=== PATIENT | female | born 1990 | race Caucasian/White ===

== ENCOUNTER 2016-08-05 18:55 | Emergency (ER) | payer BC, MEDICAID ==
[~2016-08-05] VITALS: Ht 137.2 cm; Wt 42.8 kg
[~2016-08-05 18:55] MED LIST: CHOL500050 GT; ESOM40CA GT; GABA-185 GT; HYDR-4009 GT; IMIP50TA GT; LACO50TA2 GT; LACT1CAP32 GT; LEVA1.25 AEROSOL; LEVE500T18 GT; LEVE500T26 GT; LORA2TAB81 GT; MOME17SP7 NS; PHEN30TA40 GT; POTA10CA29 GT; PRED5SOL GT; SIME80TA GT; SODI30SP3 NAS; [UNRECOGNIZED DRUG - CODE] GT; [UNRECOGNIZED DRUG - CODE] GT; [UNRECOGNIZED DRUG - CODE] IT
--- OUTSIDE RECORDS SUMMARY | 2016-08-05 18:59 | XMS REPORT | Continuity of Care Document ---
Author Author [facility] Organization [facility] Address Unknown Phone Unavailable Care Team Providers Care Algebraist Name Role Phone ТАТЬЯНА LOYA MD Primary Care Physician [phone] Insurance Providers Payer Name Policy Number Subscriber Name Relationship [facility] [id number] Ambrocio Stevenson 19 Child [facility] Community Plan [id number] Tia Stevenson 18 Self Advance Directives Directive Response Recorded Date/Time Advanced Directives Type None 12/31/13 1:08pm Problems Medical Problems Problem Onset Date Status Aspiration pneumonia due to inhalation of vomitus Unknown Active Aspiration pneumonia due to inhalation of vomitus Unknown Active Dislodged gastrostomy tube Unknown Active Dislodged gastrostomy tube Unknown Active Upper respiratory infection Unknown Active Medications Medication Dose Route Sig Days/Qty Instructions Order Date Discontinued Date Status Oxcarbazepine 300 Mg GT TWICE A DAY 12/05/09 Active Imipramine Hcl 50 Mg GT DAILY 12/05/09 Active Metoclopramide Hcl 10 Mg PO TWICE A DAY 03/01/08 03/02/08 Discontinued Levetiracetam 250 Mg PO TWICE A DAY 03/02/08 12/05/09 Discontinued Polyethylene Glycol 3350 1 Tsp GT DAILY 12/05/09 Active Zolpidem Tartrate 5 Mg PO NEEDED 03/02/08 12/05/09 Discontinued Mometasone Furoate 17 Gm NS DAILY 12/05/09 Active Phenobarbital 37.5 Mg GT DAILY 12/05/09 Active Potassium Chloride 20 Meq GT DAILY 12/05/09 Active Gabapentin 100 Mg PO TWICE A DAY 03/02/08 12/05/09 Discontinued Gabapentin 100 Mg GT THREE TIMES A DAY 12/05/09 Active Levetiracetam 500 Mg GT TWICE A DAY 12/05/09 Active Lorazepam 2 Mg GT NEEDED 12/05/09 Active Baclofen 500 Mcg IT DAILY 12/05/09 Active Lactobacillus Rhamnosus 1 Cap PO 10/07/13 Active [Gas X] 10/07/13 Active Levalbuterol Hcl 1.25 Mg IH EVERY 4-6 HOURS PRN WHEEZING 1 Qty Active Lacosamide 1 Tab PO TWICE A DAY 12/31/13 Active Mometasone Furoate 1 [place] EA NOSTRIL DAILY PRN PRN ORDERS 12/31/13 Active Cholecalciferol (Vitamin D3) 1 Cap PO 1 WEEK 12/31/13 Active Hydrocodone/Acetaminophen 1 Tab PO Every 6 Hours PRN PAIN 12/31/13 Active Sodium Chloride Unknown Dose 12/31/13 Active Esomeprazole Magnesium 1 Cap PO TWICE A DAY 12/31/13 Active Social History Social History Problem Response Recorded Date/Time Smoking Status Never smoker 12/31/2013 1:35pm Hx Alcohol Use No 12/31/2013 1:35pm Hospital Discharge Instructions No hospital discharge instructions. Plan of Care No plan of care. Functional Status Query Response Date Recorded Physical Hygiene Total Care December 31, 2013 1:35pm Disabilities Contracture December 31, 2013 1:35pm Devices Used Wheelchair December 31, 2013 1:35pm Dressing Total Care December 31, 2013 1:35pm Ambulation Total Care December 31, 2013 1:35pm Diet Total Care December 31, 2013 1:35pm Mental Status Confused December 31, 2013 3:06pm Disabilities Contracture December 31, 2013 1:35pm Devices Used Wheelchair December 31, 2013 1:35pm Physical Hygiene Total Care December 31, 2013 1:35pm Dressing Total Care December 31, 2013 1:35pm Ambulation Total Care December 31, 2013 1:35pm Diet Total Care December 31, 2013 1:35pm Allergies, Adverse Reactions, Alerts Allergen Type Severity Reaction Status Last Updated Phenytoin Allergy Intermediate RASH Active 11/03/13 Midazolam Allergy Intermediate HYPOTENSION Active 11/03/13 Immunizations Name Given Type Hx Influenza Vaccination 2008 Historical Hx Pneumococcal Vaccination Yes Historical Hx Influenza Vaccination 2008 Historical Vital Signs Acute Vital Signs Vital Response Date/Time Temperature (Fahrenheit) 98.6 deg F (96.8 - 99.1) Temperature (Calculated Celsius) 37.54569 degrees C (36.0 - 37.3) Pulse Rate (adult) 93 bpm (60 - 100) Respiratory Rate 18 breaths/min (10 - 20) O2 Sat by Pulse Oximetry 100 % (90 - 100) Blood Pressure 172/115 mm Hg Height 4 ft 6 in Weight 90 lb Body Mass Index 21.0 kg/m^2 Results Test Source Date Result Interp. Ref. Range Comments Respiratory Virus Antigen Screen December 31, 2013 1:49pm Negative - Influenza Type B Antigen December 31, 2013 1:49pm Negative - Negative for Flu B protein antigen. Assay sensitivity is90%. Influenza Type A Antigen December 31, 2013 1:49pm Negative - Negative for Flu A protein antigen. Assay sensitivity is90%. Alanine Aminotransferase (ALT/SGPT) March 08, 2013 2:43pm 20 U/L N 9- 52 Albumin March 08, 2013 2:43pm 3.7 G/DL N 3.5-5.0 Albumin/Globulin Ratio March 08, 2013 2:43pm 1.2 RATIO N 1.1-2.2 Alkaline Phosphatase March 08, 2013 2:43pm 89 U/L N 38-126 Amylase Level May 26, 2010 8:30am 51 U/L N 30-110 Anion Gap March 08, 2013 2:43pm 12 MEQ/L N 5-15 Anti-Endomysial Antibody May 26, 2010 8:30am Ref lab rpt scanned - --- 05/31/10 1008 ---ENDOM previously reported as: SEND OUT Aspartate Amino Transf (AST/SGOT) March 08, 2013 2:43pm 11 U/L L 14- 36 BUN/Creatinine Ratio March 08, 2013 2:43pm 15 RATIO N 6-26 Basophils # (Auto) April 07, 2011 8:36am 0.0 T/MM3 N 0-0.2 Basophils (%) (Auto) April 07, 2011 8:36am 0.9 % N 0-2 Blood Urea Nitrogen March 08, 2013 2:43pm 3.0 MG/DL L 7-17 C-Reactive Protein May 26, 2010 8:30am 5.2 MG/L N 0-9 Calcium Level March 08, 2013 2:43pm 8.3 MG/DL L 8.4-10.2 Calculated Osmolality March 08, 2013 2:43pm 252 MOSM/KG L 261-280 Carbon Dioxide Level March 08, 2013 2:43pm 26 MEQ/L N 22-30 Chloride Level March 08, 2013 2:43pm 95 MEQ/L L 98-107 Conjugated Bilirubin December 05, 2009 2:25am 0.00 MG/DL N 0.00-0.30 Creatinine March 08, 2013 2:43pm 0.2 MG/DL L 0.7-1.2 Eosinophils # (Auto) April 07, 2011 8:36am 0.1 T/MM3 N 0-0.5 Eosinophils (%) (Auto) April 07, 2011 8:36am 2.1 % N 0-4 Erythrocyte Sedimentation Rate May 26, 2010 8:30am 41 MM/HR H 0-20 Free Thyroxine April 07, 2011 8:36am 0.72 NG/DL L 0.78-2.19 Globulin March 08, 2013 2:43pm 3.1 G/DL N 2.4-3.6 Glucose Level March 08, 2013 2:43pm 89 MG/DL N 65-110 Helicobacter pylori Antibodies May 26, 2010 8:30am Ref lab rpt scanned - --- 05/29/10 1048 ---HPYLGAM previously reported as: SENT OUT Hematocrit April 07, 2011 8:36am 43.2 % N 36-46 Hemoglobin April 07, 2011 8:36am 14.4 GM/DL N 12-16 Immunoglobulin A May 26, 2010 8:30am 209.34 MG/DL N 70-400 Lipase May 26, 2010 8:30am 77 U/L N 23-300 Lymphocytes # (Auto) April 07, 2011 8:36am 1.4 T/MM3 N 1-4.8 Lymphocytes (%) (Auto) April 07, 2011 8:36am 40.3 % N 23-45 Mean Corpuscular Hemoglobin April 07, 2011 8:36am 31.1 UUG N 26-34 Mean Corpuscular Hemoglobin Concent April 07, 2011 8:36am 33.3 GM/DL N 31-37 Mean Corpuscular Volume April 07, 2011 8:36am 93.3 UM3 N 80-100 Mean Platelet Volume April 07, 2011 8:36am 9.9 UM3 N 9.4-12.4 Monocytes # (Auto) April 07, 2011 8:36am 0.3 T/MM3 N 0-0.8 Monocytes (%) (Auto) April 07, 2011 8:36am 7.6 % N 0-9.0 Neutrophils # (Auto) April 07, 2011 8:36am 1.7 T/MM3 L 1.8-7.7 Neutrophils (%) (Auto) April 07, 2011 8:36am 49.1 % N 33-66 Oxcarbazepine Level March 08, 2013 2:43pm 32 mcg/mL - Test Performed by:[facility] [address] [place] [address] Catalyst Concentration Operator: Ishaan Beauchamp III, M.D. Oxcarbazepine, S performed at [facility], [address] [place] [address] Candy Butcher Nito Wilson MD Phenobarbital Level March 08, 2013 2:43pm 16 ug/mL - Phenobarbital performed at [facility], [address] [place] [address] [id number] Director Nano Wilson MD Platelet Count April 07, 2011 8:36am 211 T/MM3 N 130-400 Potassium Level March 08, 2013 2:43pm 4.2 MEQ/L N 3.6-5 RDW Standard Deviation April 07, 2011 8:36am 44.4 FL N 36.9-50.2 Red Blood Count April 07, 2011 8:36am 4.63 M/MM3 N 4.00-5.20 Sodium Level March 08, 2013 2:43pm 133 MEQ/L L 134-144 Thyroid Stimulating Hormone (TSH) April 07, 2011 8:36am 0.58 MIU/L N 0.47-4.68 Thyroxine (T4) May 26, 2010 8:30am 4.2 UG/DL L 5.5-11 Tissue Transglutaminase IgA Ab May 26, 2010 8:30am Ref lab rpt scanned - --- 05/29/10 1048 ---TISSTRIGA previously reported as: SEND OUT Total Bilirubin March 08, 2013 2:43pm 0.10 MG/DL L 0.20-1.30 Total Protein March 08, 2013 2:43pm 6.8 G/DL N 6.3-8.2 Unconjugated Bilirubin December 05, 2009 2:25am 0.18 MG/DL N 0.00-1.10 Urine Amorphous Phosphates December 05, 2009 3:30am Moderate - Has specimen been collected/obtained? Y Urine Bacteria July 24, 2013 10:00am None seen - Urine Bilirubin July 24, 2013 10:00am Negative - Urine Blood July 24, 2013 10:00am Negative - Urine Collection Type July 24, 2013 10:00am Straight cath - Urine Color July 24, 2013 10:00am Yellow - Urine Culture Indicated July 24, 2013 10:00am Cult not indicated - Urine Glucose (UA) July 24, 2013 10:00am Negative - Urine Ketones July 24, 2013 10:00am Negative - Urine Leukocyte Esterase July 24, 2013 10:00am Negative - Urine Mucus December 05, 2009 3:30am Present - Has specimen been collected/obtained? Y Urine Nitrite July 24, 2013 10:00am Negative - Urine Protein July 24, 2013 10:00am Negative - Urine RBC July 24, 2013 10:00am 3-5 /HPF H - Urine Specific [place] July 24, 2013 10:00am 1.010 L - Urine Squamous Epithelial Cells July 24, 2013 10:00am 0-5 - Urine Turbidity July 24, 2013 10:00am Clear - Urine Urobilinogen July 24, 2013 10:00am 0.2 EU/DL - Urine WBC July 24, 2013 10:00am 0-1 /HPF - Urine pH July 24, 2013 10:00am 8.0 - White Blood Count April 07, 2011 8:36am 3.4 T/MM3 L 4.5-11.0 Oxcarbazepine Metabolite August 23, 2009 9:45am Send out - Lab Scanned Report July 24, 2013 11:47am LAB TEST FORM REQUEST [id number] - Glomerular Filtration Rate Calc March 08, 2013 2:43pm 444 - Immature Granulocyte # (Auto) April 07, 2011 8:36am 0.00 T/MM3 N 0.00- 0.03 Immature Granulocyte % (Auto) April 07, 2011 8:36am 0.0 % N 0.0-0.5 Blood Culture Blood December 20, 2010 10:40am NO GROWTH AFTER 5 DAYS Name: TIA STEVENSON Unit #: [id number] : 1990 Sex: F Loc / Svc: JESSIKA DOS: 11/14/13 Signed Report #: [id number] DIAGNOSTIC IMAGING REPORT TYPE OF EXAM: CHEST, PA & LATERAL Dictated By: BOOM HOLT MD INDICATION: ITS.REASON: 786.2 COUGH COMPARISON: 09/07/13 CHEST, PA LATERAL: Scoliosis and thoracolumbar surgery. Large amount of gas in the colon. Normal heart size. No evidence of acute lung infiltrate. Minimal change since the prior CXR. IMPRESSION: No evidence of acute disease. . Procedures Procedure Status Date Provider(s) CHANGE GASTROSTOMY TUBE completed 11/03/13 VY GILLIAM MD Encounters Encounter Location Date/Time Registered Emergency Room [facility] 12/31/13 12:36pm Registered Clinic [facility] 11/14/13 12:41pm Departed Emergency Room [facility] 11/03/13 4:55pm Departed Emergency Room [facility] 10/07/13 4:30am Recent Diagnosis
--- OUTSIDE RECORDS SUMMARY | 2016-08-05 18:59 | XMS REPORT | Continuity of Care Document ---
Author Author [facility] Organization [facility] Address Unknown Phone Unavailable Care Team Providers Care Marketing Manager Health Communications Name Role Phone ТАТЬЯНА LOYA MD Primary Care Physician [phone] Insurance Providers Payer Name Policy Number Subscriber Name Relationship [facility] [id number] Ambrocio Stevenson 19 Child [facility] Community Plan [id number] Tia Stevenson 18 Self Problems Medical Problems Problem Onset Date Status Aspiration pneumonia due to inhalation of vomitus Unknown Active Aspiration pneumonia due to inhalation of vomitus Unknown Active Dislodged gastrostomy tube Unknown Active Dislodged gastrostomy tube Unknown Active Medications Medication Dose Route Sig Days/Qty Instructions Order Date Discontinued Date Status Oxcarbazepine 300 Mg GT TWICE A DAY 12/05/09 Active Imipramine Hcl 50 Mg GT DAILY 12/05/09 Active Metoclopramide Hcl 10 Mg PO TWICE A DAY 03/01/08 03/02/08 Discontinued Levetiracetam 250 Mg PO TWICE A DAY 03/02/08 12/05/09 Discontinued Polyethylene Glycol 3350 1 Tsp GT DAILY 12/05/09 Active Famotidine 20 Mg GT TWICE A DAY 12/05/09 Active Zolpidem Tartrate 5 Mg PO [...] Baclofen 500 Mcg IT DAILY 12/05/09 Active Lacosamide 50 Mg PO 10/07/13 Active Lactobacillus Rhamnosus 1 Cap PO 10/07/13 Active [Gas X] 10/07/13 Active Levalbuterol Hcl 1.25 Mg IH EVERY 4-6 HOURS PRN WHEEZING 1 Qty Active Social History Social History Problem Response Recorded Date/Time Smoking Status Never smoker 11/03/2013 5:15pm Hx Alcohol Use No 11/03/2013 5:15pm Hospital Discharge Instructions No hospital discharge instructions. Plan of Care No plan of care. 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, 2013 5:15pm Devices Used Glasses November 03, 2013 5:15pm Physical Hygiene Total Care November 03, 2013 5:15pm Dressing Total Care November 03, 2013 5:15pm Ambulation Total Care November 03, 2013 5:15pm Diet Total Care November 03, 2013 5:15pm Allergies, Adverse Reactions, Alerts Allergen Type Severity Reaction Status Last Updated Phenytoin Allergy Intermediate RASH Active 11/03/13 Midazolam Allergy Intermediate HYPOTENSION Active 11/03/13 Immunizations Name Given Type Hx Influenza Vaccination 2008 Historical Hx Pneumococcal Vaccination Yes Historical Hx Influenza Vaccination 2008 Historical Vital Signs Acute Vital Signs Vital Response Date/Time Temperature (Fahrenheit) 98.4 deg F (96.8 - 99.1) Temperature (Calculated Celsius) 36.48914 degrees C (36.0 - 37.3) Pulse Rate (adult) 104 bpm (60 - 100) Respiratory Rate 22 breaths/min (10 - 20) O2 Sat by Pulse Oximetry 98 % (90 - 100) Blood Pressure 148/88 mm Hg Height 4 ft 8 in Weight 90 lb Body Mass Index 20.0 kg/m^2 Results Test Source Date Result Interp. Ref. Range Comments Alanine Aminotransferase (ALT/SGPT) March 08, 2013 2:43pm [...] 2013 2:43pm 32 mcg/mL - Test Performed by:[address] [address] [employer] Knock Out Worker: Ishaan Beauchamp III, M.D. Oxcarbazepine, S performed at [facility], [address] [place] [address], [place] [address] Pot Sander Nito Wilson MD Phenobarbital Level March 08, 2013 2:43pm 16 ug/mL - Phenobarbital performed at [facility], [address] [place] [address] [id number] Director Nano Wilson MD Platelet Count April [...] 10:00am 3-5 /HPF H - Urine Specific [place] July 24, 2013 10:00am 1.010 L - [...] 24, 2013 11:47am LAB TEST FORM REQUEST [id number] - Glomerular Filtration Rate Calc March 08, 2013 2:43pm 444 - Immature Granulocyte # (Auto) April 07, 2011 8:36am 0.00 T/MM3 N 0.00- 0.03 Immature Granulocyte % (Auto) April 07, 2011 8:36am 0.0 % N 0.0-0.5 Blood Culture Blood December 20, 2010 10:40am NO GROWTH AFTER 5 DAYS Name: TIA STEVENSON Unit #: [id number] : 1990 Sex: F Loc / Svc: ED DOS: 10/07/13 Signed Report #: [id number] DIAGNOSTIC IMAGING REPORT TYPE OF EXAM: CHEST 1 VIEW Dictated By: HAROON DOMÍNGUEZ MD INDICATION: ITS.REASON: possible aspiration CHEST 1 VIEW: The chest is clear. No cardiopulmonary abnormalities. No pneumonia or pleural effusion or atelectasis. . Procedures No known history of procedures. Encounters Encounter Location Date/Time Departed Emergency Room [facility] 11/03/13 4:55pm Departed Emergency Room [facility] 10/07/13 4:30am Recent Diagnosis
--- OUTSIDE RECORDS SUMMARY | 2016-08-05 18:59 | XMS REPORT | Continuity of Care Document ---
Author Author [facility] LIVE Organization [facility] LIVE Address Unknown Phone Unavailable Care Team Providers Care Fabric Cutter Name Role Phone ТАТЬЯНА LOYA MD Primary Care Physician [phone] Insurance Providers Payer Name Policy Number Subscriber Name Relationship [facility] [id number] Ambrocio Stevenson 19 Child [facility] Community Plan [id number] Tia Stevenson 18 Self Problems Medical Problems Problem Onset Date Status Aspiration pneumonia due to inhalation of vomitus Unknown Active Aspiration pneumonia due to inhalation of vomitus Unknown Active Dislodged gastrostomy tube Unknown Active Dislodged gastrostomy tube Unknown Active Upper respiratory infection Unknown Active Bronchitis Unknown Active Asthmatic bronchitis Unknown Active Medications Medication Dose Route Sig [...] A DAY 12/31/13 Active Mometasone Furoate 1 Jay EA NOSTRIL DAILY PRN PRN ORDERS 12/31/13 Active Cholecalciferol (Vitamin D3) 1 Cap PO 1 WEEK 12/31/13 Active Hydrocodone/Acetaminophen 1 Tab PO Every 6 Hours PRN PAIN 12/31/13 Active Sodium Chloride Unknown Dose 12/31/13 Active Esomeprazole Magnesium 1 Cap PO TWICE A DAY 12/31/13 Active Azithromycin 1 Tsp PO DAILY 10 Days 2 1/2 tsp po day one then 1 1/4 tsp po days 2-5 via G tube 01/01/14 Active Prednisolone 30 Mg PO TWICE DAILY WITH MEALS 5 Days 01/01/14 Active Social History Social History Problem Response Recorded Date/Time Smoking Status Never smoker 01/01/2014 7:36am Hx Alcohol Use No 01/01/2014 7:36am Hospital Discharge Instructions No hospital discharge instructions. Plan of Care No plan of care. Functional Status Query Response Date Recorded Physical Hygiene Total Care January 01, 2014 7:36am Disabilities Visual January 01, 2014 7:36am Devices Used Glasses January 01, 2014 7:36am Dressing Total Care January 01, 2014 7:36am Ambulation Total Care January 01, 2014 7:36am Diet Total Care January 01, 2014 7:36am Mental Status Alert January 01, 2014 10:55am Disabilities Visual January 01, 2014 7:36am Devices Used Glasses January 01, 2014 7:36am Physical Hygiene Total Care January 01, 2014 7:36am Dressing Total Care January 01, 2014 7:36am Ambulation Total Care January 01, 2014 7:36am Diet Total Care January 01, 2014 7:36am Allergies, Adverse Reactions, Alerts Allergen Type Severity Reaction Status Last Updated Phenytoin Allergy Intermediate RASH Active 01/01/14 Midazolam Allergy Intermediate HYPOTENSION Active 01/01/14 Immunizations Name Given Type Hx Influenza Vaccination Y 12/2013 Historical Hx Pneumococcal Vaccination Y >2yrs ago Historical Hx Influenza Vaccination Y 12/2013 Historical Vital Signs Acute Vital Signs Vital Response Date/Time Temperature (Fahrenheit) 97.4 deg F (96.8 - 99.1) Temperature (Calculated Celsius) 36.72475 degrees C (36.0 - 37.3) Pulse Rate (adult) 120 bpm (60 - 100) Respiratory Rate 16 breaths/min (10 - 20) O2 Sat by Pulse Oximetry 95 % (90 - 100) Blood Pressure 128/82 mm Hg Height 4 ft 6 in Weight 90 lb Body Mass Index 21.0 kg/m^2 Results Test Source Date Result Interp. Ref. Range Comments Alanine Aminotransferase (ALT/SGPT) January 01, 2014 8:06am 20 U/L N 9- 52 Albumin January 01, 2014 8:06am 4.4 G/DL N 3.5-5.0 Albumin/Globulin Ratio January 01, 2014 8:06am 1.2 RATIO N 1.1-2.2 Alkaline Phosphatase January 01, 2014 8:06am 112 U/L N 38-126 Amylase Level May 26, 2010 8:30am 51 U/L N 30-110 Anion Gap January 01, 2014 8:06am 13 MEQ/L N 5-15 Anti-Endomysial Antibody May 26, 2010 8:30am Ref lab rpt scanned - --- 05/31/10 1008 ---ENDOM previously reported as: SEND OUT Aspartate Amino Transf (AST/SGOT) January 01, 2014 8:06am 18 U/L N 14- 36 BUN/Creatinine Ratio January 01, 2014 8:06am 20 RATIO N 6-26 Band Neutrophils # January 01, 2014 8:06am 0.6 T/MM3 - Band Neutrophils % January 01, 2014 8:06am 7.0 % H 0-6 Basophils # (Auto) April 07, 2011 8:36am 0.0 T/MM3 N 0-0.2 Basophils (%) (Auto) April 07, 2011 8:36am 0.9 % N 0-2 Blood Urea Nitrogen January 01, 2014 8:06am 4.0 MG/DL L 7-17 C-Reactive Protein May 26, 2010 8:30am 5.2 MG/L N 0-9 Calcium Level January 01, 2014 8:06am 8.9 MG/DL N 8.4-10.2 Calculated Osmolality January 01, 2014 8:06am 253 MOSM/KG L 261-280 Carbon Dioxide Level January 01, 2014 8:06am 24 MEQ/L N 22-30 Chloride Level January 01, 2014 8:06am 95 MEQ/L L 98-107 Conjugated Bilirubin December 05, 2009 2:25am 0.00 MG/DL N 0.00-0.30 Creatinine January 01, 2014 8:06am 0.2 MG/DL L 0.7-1.2 Eosinophils # (Auto) April 07, 2011 8:36am 0.1 T/MM3 N 0-0.5 Eosinophils # (Manual) January 01, 2014 8:06am 0.1 T/MM3 N 0-0.5 Eosinophils % (Manual) January 01, 2014 8:06am 1.0 % N 0-4 Eosinophils (%) (Auto) April 07, 2011 8:36am 2.1 % N 0-4 Erythrocyte Sedimentation Rate May 26, 2010 8:30am 41 MM/HR H 0-20 Free Thyroxine April 07, 2011 8:36am 0.72 NG/DL L 0.78-2.19 Globulin January 01, 2014 8:06am 3.6 G/DL N 2.4-3.6 Glucose Level January 01, 2014 8:06am 115 MG/DL H 65-110 Group A Streptococcus Screen January 01, 2014 8:20am Negative - Strep culture confirmation to follow Helicobacter pylori Antibodies May 26, 2010 8:30am Ref lab rpt scanned - --- 05/29/10 1048 ---HPYLGAM previously reported as: SENT OUT Hematocrit January 01, 2014 8:06am 40.3 % N 36-46 Hemoglobin January 01, 2014 8:06am 13.6 GM/DL N 12-16 Immunoglobulin A May 26, 2010 8:30am 209.34 MG/DL N 70-400 Influenza Type A Antigen December 31, 2013 1:49pm Negative - Negative for Flu A protein antigen. Assay sensitivity is90%. Influenza Type B Antigen December 31, 2013 1:49pm Negative - Negative for Flu B protein antigen. Assay sensitivity is90%. Lipase May 26, 2010 8:30am 77 U/L N 23-300 Lymphocytes # (Auto) April 07, 2011 8:36am 1.4 T/MM3 N 1-4.8 Lymphocytes # (Manual) January 01, 2014 8:06am 0.4 T/MM3 L 1-4.8 Lymphocytes % (Manual) January 01, 2014 8:06am 5.0 % L 23-45 Lymphocytes (%) (Auto) April 07, 2011 8:36am 40.3 % N 23-45 Mean Corpuscular Hemoglobin January 01, 2014 8:06am 30.2 UUG N 26-34 Mean Corpuscular Hemoglobin Concent January 01, 2014 8:06am 33.7 GM/DL N 31-37 Mean Corpuscular Volume January 01, 2014 8:06am 89.6 UM3 N 80-100 Mean Platelet Volume January 01, 2014 8:06am 9.5 UM3 N 9.4-12.4 Monocytes # (Auto) April 07, 2011 8:36am 0.3 T/MM3 N 0-0.8 Monocytes # (Manual) January 01, 2014 8:06am 0.2 T/MM3 N 0-0.8 Monocytes % (Manual) January 01, 2014 8:06am 2.0 % N 0-9.0 Monocytes (%) (Auto) April 07, 2011 8:36am 7.6 % N 0-9.0 Neutrophils # (Auto) April 07, 2011 8:36am 1.7 T/MM3 L 1.8-7.7 Neutrophils # (Manual) January 01, 2014 8:06am 7.2 T/MM3 N 1.8-7.7 Neutrophils % (Manual) January 01, 2014 8:06am 84.0 % H 33-66 Neutrophils (%) (Auto) April 07, 2011 8:36am 49.1 % N 33-66 Oxcarbazepine Level March 08, 2013 2:43pm 32 mcg/mL - Test Performed by:[address] [address] Kiln Furniture Saw Tender: Ishaan Beauchamp III, M.D. Oxcarbazepine, S performed at [facility], [address] [place] [address] Massage Coordinator Nito Wilson MD Phenobarbital Level March 08, 2013 2:43pm 16 ug/mL - Phenobarbital performed at [facility], [address] [place], [place] [address]Medical Director Nano Wilson MD Platelet Count January 01, 2014 8:06am 202 T/MM3 N 130-400 Potassium Level January 01, 2014 8:06am 4.1 MEQ/L N 3.6-5 RDW Standard Deviation January 01, 2014 8:06am 44.1 FL N 36.9-50.2 Red Blood Count January 01, 2014 8:06am 4.50 M/MM3 N 4.00-5.20 Sodium Level January 01, 2014 8:06am 132 MEQ/L L 134-144 Thyroid Stimulating Hormone (TSH) April 07, 2011 8:36am 0.58 MIU/L N 0.47-4.68 Thyroxine (T4) May 26, 2010 8:30am 4.2 UG/DL L 5.5-11 Tissue Transglutaminase IgA Ab May 26, 2010 8:30am Ref lab rpt scanned - --- 05/29/10 1048 ---TISSTRIGA previously reported as: SEND OUT Total Bilirubin January 01, 2014 8:06am 0.30 MG/DL N 0.20-1.30 Total Protein January 01, 2014 8:06am 8.0 G/DL N 6.3-8.2 Troponin I January 01, 2014 8:06am < 0.012 ng/ml 0-0.12 Unconjugated Bilirubin December 05, 2009 2:25am 0.18 [...] 10:00am 3-5 /HPF H - Urine Specific [place] July 24, 2013 10:00am 1.010 L - Urine Squamous Epithelial Cells July 24, 2013 10:00am 0-5 - Urine Turbidity July 24, 2013 10:00am Clear - Urine Urobilinogen July 24, 2013 10:00am 0.2 EU/DL - Urine WBC July 24, 2013 10:00am 0-1 /HPF - Urine pH July 24, 2013 10:00am 8.0 - White Blood Count January 01, 2014 8:06am 8.6 T/MM3 N 4.5-11.0 Chemistry Specimen Hemolysis January 01, 2014 8:06am 19 N 0-25 0-25: No Hemolysis.26-70: Slight Hemolysis - can falsely elevate K and Urine Protein. 71-285: Moderate Hemolysis - can falsely elevate K, Troponin I, CA 19-9, PTH, CSF GLucose, and Urine Protein, and can falsely decrease Phenytoin. 286-999: Gross Hemolysis - can falsely elevate K, Troponin I, CA 19-9, PTH, CSF Glucose, and Urine Protine, and can falsely decrease Phenytoin. Recommend specimen recollection. Oxcarbazepine Metabolite August 23, 2009 9:45am Send out - Lab Scanned Report July 24, 2013 11:47am LAB TEST FORM REQUEST [id number] - Respiratory Virus Antigen Screen December 31, 2013 1:49pm Negative - Turbidity January 01, 2014 8:06am < 20 0-20 Reactive Lymphocytes % January 01, 2014 8:06am 1.0 % H 0-0 Glomerular Filtration Rate Calc January 01, 2014 8:06am 440 - Reactive Lymphocytes # January 01, 2014 8:06am 0.1 T/MM3 H 0-0 Immature Granulocyte # (Auto) April 07, 2011 8:36am 0.00 T/MM3 N 0.00- 0.03 Immature Granulocyte % (Auto) April 07, 2011 8:36am 0.0 % N 0.0-0.5 Icterus Index January 01, 2014 8:06am < 2 0-7 Blood Culture Blood December 20, 2010 10:40am NO GROWTH AFTER 5 DAYS Name: TIA STEVENSON Unit #: [id number] : 1990 Sex: F Loc / Svc: ED DOS: 12/31/13 Signed Report #: [id number] DIAGNOSTIC IMAGING REPORT TYPE OF EXAM: CHEST 1 VIEW Dictated By: ALLEN CHILDERS MD INDICATION: ITS.REASON: cough, fever CHEST 1 VIEW: Comparison: November 14, 2013 Findings: The lungs are stable in appearance without new focal airspace consolidation. There is no pleural effusion or pneumothorax. Chronically elevated right hemidiaphragm. The heart size, pulmonary vascularity and mediastinal contours are unchanged. Significant scoliosis with spinal fixation hardware. IMPRESSION: Stable appearance of the chest without acute cardiopulmonary disease. There is a preliminary report by virtual radiologic. . Procedures Procedure Status Date Provider(s) CHANGE GASTROSTOMY TUBE completed 11/03/13 VY GILLIAM MD Encounters Encounter Location Date/Time Departed Emergency Room [facility] 01/01/14 6:02am Departed Emergency Room [facility] 12/31/13 12:36pm Registered Clinic [facility] 11/14/13 12:41pm Departed Emergency Room [facility] 11/03/13 4:55pm Departed Emergency Room [facility] 10/07/13 4:30am Recent Diagnosis
--- OUTSIDE RECORDS SUMMARY | 2016-08-05 18:59 | XMS REPORT | Continuity of Care Document ---
Author Author [facility] Address Unknown Phone Unavailable Allergies Active Description Code Type Severity Reaction Onset Reported/Identified Relationship to Patient Clinical Status Yes latex Drug Allergy Unknown RASH 05/06/2013 Yes midazolam Drug Allergy Unknown SEIZURE,COMA 05/06/2013 Yes phenytoin Drug Allergy Unknown RASH 05/06/2013 Medications Problems Date Dx Coded Attending Type Code Diagnosis Diagnosed By 04/27/2013 Crescencio Melissa MD 344.00 QUADRIPLEGIA, UNSPECIFIED 05/08/2013 Crescencio Melissa MD 344.00 QUADRIPLEGIA, UNSPECIFIED 05/08/2013 Crescencio Melissa MD 344.00 QUADRIPLEGIA, UNSPECIFIED Procedures Code Description Performed By Performed On 45.16 ESOPHAGOGASTRODUODENOSCOPY [EGD] W/CLOSED BIOPSY Trish VARGHESE, Eiad B 01/10/2013 86.06 INSERTION OF TOTALLY IMPLANTABLE INFUSION PUMP Crescencio Melissa MD 05/08/2013 86.07 INSERTION OF TOTALLY IMPLANTABLE VASC ACCESS MIGUELINAC Crescencio Melissa MD 05/08/2013 Results Test Result Range POTASSIUM - 01/10/13 14:07 POTASSIUM 4.0 mmol/L 3.5-5.3 CBC - 05/08/13 06:18 MEAN CELL HGB 31.6 pg 27.0-33.0 MEAN CELL HGB CONCENTRATION 34.3 g/dL 32.0-37.0 MEAN CELL VOLUME 92.1 fl 80.0-100.0 RED BLOOD CELL 4.94 m/cumm 4.00-6.00 RED CELL DISTRIBUTION WIDTH 14.1 % 11.0- 15.6 WHITE BLOOD CELL 2.9 k/cumm 5.0-10.0 HEMOGLOBIN 15.6 gm/dL 12.0-16.0 HEMATOCRIT 45.5 % 37.0-47.0 PLATELET COUNT 196 k/cumm 150-400 TEST, SERUM - 05/08/13 06:18 TEST, SERUM NEGATIVE NEGATIVE Encounters ACCT No. Visit Date/Time Discharge Status Pt. Type Provider Facility Loc./Unit Complaint [id number] 05/08/2013 05:28:00 2013 10:40:00 DIS Outpatient Belén VARGHESE, [facility] W.OPRA [id number] 01/10/2013 12:24:00 2012 16:07:00 DIS Outpatient Trish VARGHESE, Eiad B [facility] W.END
--- OUTSIDE RECORDS SUMMARY | 2016-08-05 19:00 | XMS REPORT | Continuity of Care Document ---
Author Author [facility] LIVE Organization [facility]IVE Address Unknown Phone Unavailable Care Team Providers Care Speech Communication Professor Name Role Phone ТАТЬЯНА LOYA MD Primary Care Physician [phone] Insurance Providers Payer Name Policy Number Subscriber Name Relationship [facility] [id number] Ambrocio Stevenson [address] [facility] Community Plan [id number] Tia Stevenson 18 Self Problems Medical Problems Problem Onset Date Status Aspiration pneumonia due to inhalation of vomitus Unknown Active Aspiration pneumonia due to inhalation of vomitus Unknown Active Medications Medication Dose Route Sig [...] Baclofen 500 Mcg IT DAILY 12/05/09 Active Oxcarbazepine 300 Mg 10/07/13 Active Lacosamide 50 Mg PO 10/07/13 Active Lactobacillus Rhamnosus 1 Cap PO 10/07/13 Active [Gas X] 10/07/13 Active Clindamycin Hcl 300 Mg GT FOUR TIMES DAILY 7 Days 10/07/13 Active Metronidazole 500 Mg GT THREE TIMES A DAY 7 Days 10/07/13 Active Levalbuterol Hcl 1.25 Mg IH EVERY 4-6 HOURS PRN WHEEZING 1 Qty Active Fluconazole 150 Mg PO ONETIME 1 Qty 10/07/13 Active Social History Social History Problem Response Recorded Date/Time Smoking Status Never smoker 10/07/2013 4:40am Hx Alcohol Use No 10/07/2013 4:40am Hospital Discharge Instructions No hospital discharge instructions. Plan of Care No plan of care. Functional Status Query Response Date Recorded Physical Hygiene Total Care October 07, 2013 4:40am Disabilities Contracture October 07, 2013 4:40am Devices Used Wheelchair October 07, 2013 4:40am Dressing Total Care October 07, 2013 4:40am Ambulation Total Care October 07, 2013 4:40am Diet Total Care October 07, 2013 4:40am Mental Status Confused October 07, 2013 4:40am Disabilities Contracture October 07, 2013 4:40am Devices Used Wheelchair October 07, 2013 4:40am Physical Hygiene Total Care October 07, 2013 4:40am Dressing Total Care October 07, 2013 4:40am Ambulation Total Care October 07, 2013 4:40am Diet Total Care October 07, 2013 4:40am Allergies, Adverse Reactions, Alerts Allergen Type Severity Reaction Status Last Updated Phenytoin Allergy Intermediate RASH Active 10/07/13 Midazolam Allergy Intermediate HYPOTENSION Active 12/20/10 Immunizations Name Given Type Hx Influenza Vaccination 2008 Historical Hx Pneumococcal Vaccination Yes Historical Hx Influenza Vaccination 2008 Historical Vital Signs Acute Vital Signs Vital Response Date/Time Temperature (Fahrenheit) 97.4 deg F (96.8 - 99.1) Temperature (Calculated Celsius) 36.49919 degrees C (36.0 - 37.3) Pulse Rate (adult) 109 bpm (60 - 100) Respiratory Rate 24 breaths/min (10 - 20) O2 Sat by Pulse Oximetry 95 % (90 - 100) Blood Pressure 126/94 mm Hg Results Test Source Date Result Interp. Ref. [...] 2013 2:43pm 32 mcg/mL - Test Performed by:[address] [address] Set Up Mechanic: Ishaan Beauchamp III, M.D. Oxcarbazepine, S performed at [facility], [address], [place] [address] Biodiesel Production Technician Nito Wilson MD Phenobarbital Level March 08, 2013 2:43pm 16 ug/mL - Phenobarbital performed at [facility], [address] [place] [id number] Director Nano Wilson MD Platelet Count April [...] 10:00am 3-5 /HPF H - Urine Specific [place] July 24, 2013 10:00am 1.010 L - [...] 24, 2013 11:47am LAB TEST FORM REQUEST [id number] - Glomerular Filtration Rate Calc March 08, 2013 2:43pm 444 - Immature Granulocyte # (Auto) April 07, 2011 8:36am 0.00 T/MM3 N 0.00- 0.03 Immature Granulocyte % (Auto) April 07, 2011 8:36am 0.0 % N 0.0-0.5 Blood Culture Blood December 20, 2010 10:40am NO GROWTH AFTER 5 DAYS Procedures No known history of procedures. Encounters Encounter Location Date/Time Departed Emergency Room [facility] 10/07/13 4:30am Registered Clinic [facility] 07/24/13 10:33am Recent Diagnosis
--- OUTSIDE RECORDS SUMMARY | 2016-08-05 19:32 | XMS REPORT | Continuity of Care Document ---
Author Author [facility] Organization [facility] Address Unknown Phone Unavailable Care Team Providers Care Carpenter Mold Name Role Phone ТАТЬЯНА LOYA MD Primary Care Physician [phone] Insurance Providers Payer Name Policy Number Subscriber Name Relationship [facility] [id number] Ambrocio Stevenson 19 Child [facility] Community Plan [id number] Tia Stevenson 18 Self Advance Directives Directive [...] A DAY 12/31/13 Active Mometasone Furoate 1 [place] EA NOSTRIL DAILY PRN PRN ORDERS 12/31/13 [...] F (96.8 - 99.1) Temperature (Calculated Celsius) 37.27487 degrees C (36.0 - 37.3) Pulse Rate [...] 2013 2:43pm 32 mcg/mL - Test Performed by:[facility] [address] [place] [address] Field Artillery Operations Man: Ishaan Beauchamp III, M.D. Oxcarbazepine, S performed at [facility], [address] [place] [address] Licensed Weigher Nito Wilson MD Phenobarbital Level March 08, 2013 2:43pm 16 ug/mL - Phenobarbital performed at [facility], [address] [place] [id number] Director Nano Wilson MD Platelet Count April [...] 10:00am 3-5 /HPF H - Urine Specific [place] July 24, 2013 10:00am 1.010 L - [...] 24, 2013 11:47am LAB TEST FORM REQUEST [id number] - Glomerular Filtration Rate Calc March 08, 2013 2:43pm 444 - Immature Granulocyte # (Auto) April 07, 2011 8:36am 0.00 T/MM3 N 0.00- 0.03 Immature Granulocyte % (Auto) April 07, 2011 8:36am 0.0 % N 0.0-0.5 Blood Culture Blood December 20, 2010 10:40am NO GROWTH AFTER 5 DAYS Name: TIA STEVENSON Unit #: [id number] : 1990 Sex: F Loc / Svc: JESSIKA DOS: 11/14/13 Signed Report #: [id number] DIAGNOSTIC IMAGING REPORT TYPE OF EXAM: CHEST, [...] Encounters Encounter Location Date/Time Registered Emergency Room [facility] 12/31/13 12:36pm Registered Clinic [facility] 11/14/13 12:41pm Departed Emergency Room [facility] 11/03/13 4:55pm Departed Emergency Room [facility] 10/07/13 4:30am Recent Diagnosis
--- OUTSIDE RECORDS SUMMARY | 2016-08-05 19:32 | XMS REPORT | Continuity of Care Document ---
Author Author [facility] Organization [facility] Address Unknown Phone Unavailable Care Team Providers Care Wood Inspector Name Role Phone ТАТЬЯНА LOYA MD Primary Care Physician [phone] Insurance Providers Payer Name Policy Number Subscriber Name Relationship [facility] [id number] Ambrocio Stevenson 19 Child [facility] Community Plan [id number] Tia Stevenson 18 Self Problems Medical Problems [...] F (96.8 - 99.1) Temperature (Calculated Celsius) 36.08581 degrees C (36.0 - 37.3) Pulse Rate [...] 2013 2:43pm 32 mcg/mL - Test Performed by:[address] [address] Passenger Service Supervisor: Ishaan Beauchamp III, M.D. Oxcarbazepine, S performed at [facility], [address] [place] [address], [place] [address] Dissolver Operator Nito Wilson MD Phenobarbital Level March 08, 2013 2:43pm 16 ug/mL - Phenobarbital performed at [facility], [address] [place] [id number] Director Nano Wilson MD Platelet Count April [...] 10:00am 3-5 /HPF H - Urine Specific [place] July 24, 2013 10:00am 1.010 L - [...] 24, 2013 11:47am LAB TEST FORM REQUEST [id number] - Glomerular Filtration Rate Calc March 08, 2013 2:43pm 444 - Immature Granulocyte # (Auto) April 07, 2011 8:36am 0.00 T/MM3 N 0.00- 0.03 Immature Granulocyte % (Auto) April 07, 2011 8:36am 0.0 % N 0.0-0.5 Blood Culture Blood December 20, 2010 10:40am NO GROWTH AFTER 5 DAYS Name: TIA STEVENSON Unit #: [id number] : 1990 Sex: F Loc / Svc: ED DOS: 10/07/13 Signed Report #: [id number] DIAGNOSTIC IMAGING REPORT TYPE OF EXAM: CHEST 1 VIEW Dictated By: HAROON DOMÍNGUEZ MD INDICATION: ITS.REASON: possible aspiration CHEST 1 VIEW: The chest is clear. No cardiopulmonary abnormalities. No pneumonia or pleural effusion or atelectasis. . Procedures No known history of procedures. Encounters Encounter Location Date/Time Departed Emergency Room [facility] 11/03/13 4:55pm Departed Emergency Room [facility] 10/07/13 4:30am Recent Diagnosis
--- OUTSIDE RECORDS SUMMARY | 2016-08-05 19:32 | XMS REPORT | Continuity of Care Document ---
Author Author [facility] Organization [facility] Address Unknown Phone Unavailable Allergies Active Description [...] Status Pt. Type Provider Facility Loc./Unit Complaint [id number] 05/08/2013 05:28:00 2013 10:40:00 DIS Outpatient Belén VARGHESE, [facility] W.OPRA [id number] 01/10/2013 12:24:00 2012 16:07:00 DIS Outpatient Trish VARGHESE, Eiad B [facility] W.END
[2016-08-05 19:33] VITALS: Ht 137.2 cm; Wt 42.8 kg
--- OUTSIDE RECORDS SUMMARY | 2016-08-05 19:33 | XMS REPORT | Continuity of Care Document ---
Author Author [facility] Organization [facility] Address Unknown Phone Unavailable Care Team Providers Care Java Front End Web Developer Name Role Phone ТАТЬЯНА LOYA MD Primary Care Physician [phone] Insurance Providers Payer Name Policy Number Subscriber Name Relationship [facility] [id number] Ambrocio Stevenson 19 Child [facility] Community Plan [id number] Tia Stevenson 18 Self Problems Medical Problems [...] F (96.8 - 99.1) Temperature (Calculated Celsius) 36.83747 degrees C (36.0 - 37.3) Pulse Rate [...] 2013 2:43pm 32 mcg/mL - Test Performed by:[address] [address] Hall Manager: Ishaan Beauchamp III, M.D. Oxcarbazepine, S performed at [facility], [address] [facility], [place] [address] Precision Mechanical Instrument Maker Nito Wilson MD Phenobarbital Level March 08, 2013 2:43pm 16 ug/mL - Phenobarbital performed at [facility], [address] [place] [id number] Director Nano Wilson MD Platelet Count April [...] 10:00am 3-5 /HPF H - Urine Specific [place] July 24, 2013 10:00am 1.010 L - [...] 24, 2013 11:47am LAB TEST FORM REQUEST [id number] - Glomerular Filtration Rate Calc March 08, 2013 2:43pm 444 - Immature Granulocyte # (Auto) April 07, 2011 8:36am 0.00 T/MM3 N 0.00- 0.03 Immature Granulocyte % (Auto) April 07, 2011 8:36am 0.0 % N 0.0-0.5 Blood Culture Blood December 20, 2010 10:40am NO GROWTH AFTER 5 DAYS Procedures No known history of procedures. Encounters Encounter Location Date/Time Departed Emergency Room [facility] 10/07/13 4:30am Registered Clinic [facility] 07/24/13 10:33am Recent Diagnosis
--- OUTSIDE RECORDS SUMMARY | 2016-08-05 19:33 | XMS REPORT | Continuity of Care Document ---
Author Author [facility] Organization [facility] Address Unknown Phone Unavailable Care Team Providers Care [employer] Hvac R Instructor Name Role Phone ТАТЬЯНА LOYA MD Primary Care Physician [phone] Insurance Providers Payer Name Policy Number Subscriber Name Relationship [facility] [id number] Ambrocio Stevenson [address] [facility] Community Plan [id number] Tia Stevenson 18 Self Problems Medical Problems [...] A DAY 12/31/13 Active Mometasone Furoate 1 [place] EA NOSTRIL DAILY PRN PRN ORDERS 12/31/13 [...] F (96.8 - 99.1) Temperature (Calculated Celsius) 36.33259 degrees C (36.0 - 37.3) Pulse Rate [...] 2013 2:43pm 32 mcg/mL - Test Performed by:[address] [address] Autoclave Operator: Ishaan Beauchamp III, M.D. Oxcarbazepine, S performed at [facility], [address] [place] [address] Records Administrator Nito Wilson MD Phenobarbital Level March 08, 2013 2:43pm 16 ug/mL - Phenobarbital performed at [facility] Reference Lab, [address] [place], [place] [address]Medical Director Nano Wilson MD Platelet Count January [...] 10:00am 3-5 /HPF H - Urine Specific [place] July 24, 2013 10:00am 1.010 L - [...] 24, 2013 11:47am LAB TEST FORM REQUEST [id number] - Respiratory Virus Antigen Screen December 31, [...] 5 DAYS Name: TIA STEVENSON Unit #: [id number] : 1990 Sex: F Loc / Svc: ED DOS: 12/31/13 Signed Report #: [id number] DIAGNOSTIC IMAGING REPORT TYPE OF EXAM: CHEST [...] Encounters Encounter Location Date/Time Departed Emergency Room [facility] 01/01/14 6:02am Departed Emergency Room [facility] 12/31/13 12:36pm Registered Clinic [facility] 11/14/13 12:41pm Departed Emergency Room [facility] 11/03/13 4:55pm Departed Emergency Room [facility] 10/07/13 4:30am Recent Diagnosis
[2016-08-05] MEDS ORDERED: NORMAL SALINE 1,000 ML IV ONE (19:42)
[2016-08-05] MEDS ORDERED: CEFTRIAXONE I.V. (ER USE ONLY) 1 G in NORMAL SALINE 100 ML IV ONE (19:45)
[2016-08-05] MEDS ORDERED: PHEN32.43 PO (19:54)
[2016-08-05] MEDS ORDERED: GABA100C PO (20:00)
[2016-08-05] MEDS ORDERED: OXCA300T GT (20:00)
--- NOTE | 2016-08-05 20:00 | NUR ---
status iv was unsuccessful. contacted sales warehouse driver
[2016-08-05] MEDS ORDERED: LACO50TA2 PO (20:08)
[2016-08-05] MEDS ORDERED: ZOLE5INF7 PO (20:12)
--- NOTE | 2016-08-05 20:24 | ERPDOC ---
Departure Disposition Decision Date: August 05, 2016 Disposition Decision Time: 22:40 Disposition: 01 DISCHARGED HOME, SELF-CARE Impression Impression Impression: Primary Impression: Viral syndrome Severity: Mild Condition: Stable Seen By: Physician only Referrals: ТАТЬЯНА LOYA MD (PCP) 1 Week Patient Instructions: Viral Syndrome (ED) Problems/Meds/Labs Reviewed?: Yes Medications reviewed and manag: Yes Additional Instructions: There is no evidence of aspiration today. Pt does have evidence of a viral illness. Continue to feed as per usual. Follow up with your doctor. Follow up care ordered?: Yes HPI - Dyspnea General Chief Complaint: General Stated Complaint: POSS ASPIRATION,FAST BREATHING Time Seen by Provider: 19:26 Source: family Exam Limitations: no limitations HPI - Dyspnea Initial Comments 25yo woman presented to the ER by MOP (caregiver) for drooling, not acting right , and possible aspiration. 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 Based on pts drooling and not acting right, MOP is concerned about aspiration - which has been an issue before. Not able to give any other specifics at this time. Occurred At: home Onset/Timing: Rapid, Constant Duration: 6-12 hrs Pain/Severity Scale: Now & Worst: Unable to Rate Severity: mild Prior Episodes/Possible Cause: occasional episodes Modifying Factors: WORSE WITH: activity Associated Symptoms: other (drooling, acting differently, low SaO2 in ER.) Hx of Similar Symptoms: Yes Allergies: Coded Allergies: midazolam (Verified Allergy, Intermediate, HYPOTENSION, 08/05/16) phenytoin (Verified Allergy, Intermediate, RASH, 08/05/16) Past History Patient Medical History (1) Aspiration pneumonia due to inhalation of vomitus (2) Dislodged gastrostomy tube (3) Upper respiratory infection (4) Asthmatic bronchitis Past Medical History Respiratory: pneumonia GI: GERD, constipation Neurological: other, seizures Musculoskeletal: other Surgical History General: back, other Vaccines Hx Influenza Vaccination: Yes (12/2013) Hx Pneumococcal Vaccination: Yes (>2yrs ago) Review of Systems ENMT Comments drooling Cardiovascular Rhythm/Rate: tachycardia Pulmonary Respiratory: other (hypoxia), tachypnea All other Systems All Other Systems: Reviewed and Negative Physical Exam General General Nourishment: well nourished, well developed, appears stated age, no acute distress, adult, thin General Body Habitus: well groomed Vitals and Pain First Documented Vital Signs Date Time Temp Pulse Resp B/P Pulse Ox O2 Delivery O2 Flow Rate FiO2 08/05/16 19:33 98.8 126 18 137/99 98 Room Air Weight: Kilograms: Height (feet): 4 Height (inches): 8 Triage Pain Scale: RN VS reviewed by Provider: Yes Normal Exams: Head: Normocephalic w/o trauma Eyes: Pupils are PERRLA w/ EOMI, No scleral icterus, irritation ENMT: No facial trauma, nasal exudates, pharyngeal erythema Neck: Full range of motion, without adenopathy, JVD Lymphatic: No lymphadenopathy Musculoskeletal: No tenderness, or deformity noted Integumentary: No rashes, hives, or bruising noted Neurologic: Patient is alert, and oriented Psychiatric: Patient exhibits, appropriate attention Respiratory (brief) Respiratory: FOUND: clear all bee, equal bilaterally, symmetrical, NOT FOUND : rales, wheezes Comments Possible abn sounds in RLL Cardiovascular (brief) Cardiac: FOUND: regular rate, regular rhythm, NOT FOUND: click, gallop, murmur , pedal edema, peripheral edema, rub Capillary Refill: <2 sec Pulses: all distal extremities, equal, strong Abdomen (brief) Abdominal Brief: FOUND: bowel normo active x4, soft, NOT FOUND: distended, hepatosplenomegaly, pulsatile mass, tender Differential Diagnoses Considering: Acute Bronchitis, Acute Respiratory Failure, Influenza, Pneumonia , Pneumothorax, Sinusitis, Viral Syndrome Progress Results/Orders Orders Procedure Category Date Status Time Bmp - Basic Metabolic LAB 08/05/16 Complete Panel 19:42 Cbc W/Auto LAB 08/05/16 Complete Diff-Reflex Manual 19:42 EKG EKG 08/05/16 Taken 19:42 Chest, Pa & Lateral RAD 08/05/16 Taken 19:42 Oxygen Administration EDM 08/05/16 Transmitted 19:42 Lactate - Lactic Acid LAB 08/05/16 Complete Lactate - Lactic Acid LAB 08/06/16 Verified 00:12 Ceftriaxone (Rocephin) PHA 08/05/16 Complete 21:00 Methylprednisolone PHA 08/05/16 Complete Sod Succ (Solu-Medrol 21:00 Lab Results Laboratory Tests Test 08/05/16 21:04 White Blood Count 3.5T/MM3 Red Blood Count 3.80M/MM3 Hemoglobin 10.3GM/DL Hematocrit 31.9% Mean Corpuscular Volume 83.9UM3 Mean Corpuscular Hemoglobin 27.1UUG Mean Corpuscular Hemoglobin Concent 32.3GM/DL RDW Standard Deviation 55.0FL Platelet Count 191T/MM3 Mean Platelet Volume 10.2UM3 Immature Granulocyte % (Auto) 0.3% Neutrophils (%) (Auto) 67.1% Lymphocytes (%) (Auto) 20.8% Monocytes (%) (Auto) 10.1% Eosinophils (%) (Auto) 1.7% Basophils (%) (Auto) 0.0% Absolute Immature Granulocyte (auto 0.01T/MM3 Absolute Neutrophils (auto) 2.3T/MM3 Absolute Lymphocytes (auto) 0.7T/MM3 Absolute Monocytes (auto) 0.4T/MM3 Absolute Eosinophils (auto) 0.1T/MM3 Absolute Basophils (auto) 0.0T/MM3 Turbidity < 20 Sodium Level 140MEQ/L Potassium Level 4.1MEQ/L Chloride Level 103MEQ/L Carbon Dioxide Level 27MEQ/L Anion Gap 10MEQ/L Blood Urea Nitrogen 7.0MG/DL Creatinine 0.2MG/DL Glomerular Filtration Rate Calc 433 BUN/Creatinine Ratio 35RATIO Glucose Level 104MG/DL Calculated Osmolality 267MOSM/KG Calcium Level 8.3MG/DL Icterus Index < 2 Plasma Lactate 1.2MMOL/L Chemistry Specimen Hemolysis < 15 Medications Current ED Medications Sodium Chloride (Normal Saline IV) 1,000 ml @ 125 mls/hr Q8H ONCE IV ; Start at 19:42; Stop 08/06/16 at 03:41; Status Cancel Methylprednisolone Sodium Succinate 125 mg 125 mg O ONCE IV ; Start 08/05/16 at 19:45; Stop 08/05/16 at 19:46; Status Cancel Ceftriaxone Sodium/Sodium Chloride (Rocephin/NS) 100 ml @ 200 mls/hr O ONCE IV ; Start 08/05/16 at 19:45; Stop 08/05/16 at 20:14; Status Cancel Ceftriaxone Sodium (Rocephin) 1 g O ONCE IM ; Start 08/05/16 at 21:00; Stop at 21:01; Status DC Methylprednisolone Sodium Succinate (Solu-Medrol) 125 mg O ONCE IM ; Start at 21:00; Stop 08/05/16 at 21:01; Status DC Progress Progress No evidence of aspiration, but CBC c/w viral illness. Discussed dx, prognosis, symptomatic tx, and need for f/u with caregiver, who voiced understanding. EKG EKG : Rate: >100 Rhythm: sinus [place]: right QRS: normal Intervals: normal ST/T: non-specific changes Interpreted by: signing physician Xray Xray : Xray: CXR PA/Lat Interpretation: Normal, Interpreted by YOVANI Poole DO August 05, 2016 20:24
--- NOTE | 2016-08-05 20:30 | NUR ---
status warehouse specialist, rn here to attmetp iv. unsuccessful iv attempt.
--- NOTE | 2016-08-05 20:45 | NUR ---
lab contacted lab to have them draw lab.
[2016-08-05] MEDS ORDERED: CEFTRIAXONE 1 GRAM INJECTION IM ONE (21:00)
[2016-08-05] MEDS ORDERED: LIDOCAINE 1% (10mg/ml) 2ml SDV ID ONE (21:00)
--- NOTE | 2016-08-05 21:10 | NUR ---
lab candlemaking laborer successful collected the blood draw.
[2016-08-05 21:14] LABS: EOSINOPHILS # (AUTO) 0.1 T/MM3 (0-0.5); EOSINOPHILS % (AUTO) 1.7 % (0-4); HCT - HEMATOCRIT 31.9 % (36-46); HGB - HEMOGLOBIN 10.3 GM/DL (12-16); IMMATURE GRANULOCYTE # (AUTO) 0.01 T/MM3 (0.00-0.03); IMMATURE GRANULOCYTE % (AUTO) 0.3 % (0.0-0.5); LYMPHOCYTES # (AUTO) 0.7 T/MM3 (1-4.8); LYMPHOCYTES % (AUTO) 20.8 % (23-45); MEAN CORPUSCULAR HGB 27.1 UUG (26-34); MEAN CORPUSCULAR HGB CONC(MCHC 32.3 GM/DL (31-37); MEAN CORPUSCULAR VOLUME 83.9 UM3 (80-100); MEAN PLATELET VOLUME 10.2 UM3 (9.4-12.4); MONOCYTES # (AUTO) 0.4 T/MM3 (0-0.8); MONOCYTES % (AUTO) 10.1 % (0-9.0); NEUTROPHILS #(AUTO)-ABSOLUTE 2.3 T/MM3 (1.8-7.7); NEUTROPHILS % (AUTO) 67.1 % (33-66); WBC - WHITE BLOOD COUNT 3.5 T/MM3 (4.5-11.0)
[2016-08-05 21:18] LABS: ANION GAP 10 MEQ/L (5-15); BUN/CREATININE RATIO 35 RATIO (6-26); CALCIUM 8.3 MG/DL (8.4-10.2); CHLORIDE 103 MEQ/L (98-107); CO2 - CARBON DIOXIDE 27 MEQ/L (22-30); CREATININE 0.2 MG/DL (0.7-1.2); GLOMERULAR FILTRATION RATE 433; GLUCOSE 104 MG/DL (65-110); POTASSIUM 4.1 MEQ/L (3.6-5); SODIUM 140 MEQ/L (134-144)
[2016-08-05 22:45] VITALS: BP 130/92; PULSE 121; RESP 18; TEMP 98.8; O2SAT 100
--- NOTE | 2016-08-05 22:45 | NUR ---
DEPART MOTHER IS GIVEN DISMISSAL INSTRUCTIONS WITH VERBAL UNDERSTANDING. MOTHER TRANSFERS PT FROM CART TO W/C. MOTHER TAKES HER TO ED EXIT
--- NOTE | 2016-08-06 08:23 | DI ---
INDICATION: ITS.REASON: Poss aspiration PROCEDURE: CHEST 2-VIEWS UPRIGHT (PA \T\ LAT) Encounter: Initial COMPARISON: July 04, 2015 Findings: The lungs are stable in appearance without new focal airspace consolidation. There is no pleural effusion or pneumothorax. The heart size, pulmonary vascularity and mediastinal contours are unchanged. Severe scoliosis with fixation hardware again noted. IMPRESSION: Stable appearance of the chest without acute cardiopulmonary disease. .
== END 2016-08-05 22:45 | disposition home or self-care (01) ==
LOC: ED 18:55
DX: B34.9 Viral infection, unspecified (principal)
CPT/HCPCS: 36415; 71020; 80048; 83605; 85025; 93005; 96372; 99283; J0696; J2930

== ENCOUNTER 2016-08-07 12:07 | Emergency (ER) | payer BC, MEDICAID ==
[~2016-08-07] VITALS: Ht 142.2 cm; Wt 42.9 kg
[~2016-08-07 12:07] MED LIST changes: +GABA100C PO; +LACO50TA2 PO; -LACT1CAP32 GT; -LEVA1.25 AEROSOL; -MOME17SP7 NS; +OXCA300T GT; -PHEN30TA40 GT; +PHEN32.43 PO; -PRED5SOL GT; +ZOLE5INF7 PO; -[UNRECOGNIZED DRUG - CODE] GT
--- OUTSIDE RECORDS SUMMARY | 2016-08-07 12:12 | XMS REPORT | Continuity of Care Document ---
Author Author [facility] Organization [facility] Address Unknown Phone Unavailable Care Team Providers Care Boat Joiner Name Role Phone ТАТЬЯНА LOYA MD Primary Care Physician [phone] Insurance Providers Payer Name Policy Number Subscriber Name Relationship [facility] [id number] Ambrocio Stevenson 19 Child [facility] Community Plan [id number] Tia Stevenson 18 Self Problems Medical Problems [...] F (96.8 - 99.1) Temperature (Calculated Celsius) 36.09991 degrees C (36.0 - 37.3) Pulse Rate [...] 2:43pm 32 mcg/mL - Test Performed by:[address] [address] Bridge Tender: Ishaan Beauchamp III, M.D. Oxcarbazepine, S performed at [facility], [address] [place] [address], [place] [address] Systems Planner Nito Wilson MD Phenobarbital Level March 08, 2013 2:43pm 16 ug/mL - Phenobarbital performed at [facility] Reference Lab, [address] [place] [id number] Director Nano Wilson MD Platelet Count April [...] 10:00am 3-5 /HPF H - Urine Specific [place] July 24, 2013 10:00am 1.010 L - [...] 24, 2013 11:47am LAB TEST FORM REQUEST [id number] - Glomerular Filtration Rate Calc March 08, 2013 2:43pm 444 - Immature Granulocyte # (Auto) April 07, 2011 8:36am 0.00 T/MM3 N 0.00- 0.03 Immature Granulocyte % (Auto) April 07, 2011 8:36am 0.0 % N 0.0-0.5 Blood Culture Blood December 20, 2010 10:40am NO GROWTH AFTER 5 DAYS Name: TIA STEVENSON Unit #: [id number] : 1990 Sex: F Loc / Svc: ED DOS: 10/07/13 Signed Report #: [id number] DIAGNOSTIC IMAGING REPORT TYPE OF EXAM: CHEST 1 VIEW Dictated By: HAROON DOMÍNGUEZ MD INDICATION: ITS.REASON: possible aspiration CHEST 1 VIEW: The chest is clear. No cardiopulmonary abnormalities. No pneumonia or pleural effusion or atelectasis. . Procedures No known history of procedures. Encounters Encounter Location Date/Time Departed Emergency Room [facility] 11/03/13 4:55pm Departed Emergency Room [facility] 10/07/13 4:30am Recent Diagnosis
--- OUTSIDE RECORDS SUMMARY | 2016-08-07 12:12 | XMS REPORT | Continuity of Care Document ---
Author Author [facility] Organization [facility] Address Unknown Phone Unavailable Care Team Providers Care Mailroom Coordinator Name Role Phone ТАТЬЯНА LOYA MD Primary Care Physician [phone] Insurance Providers Payer Name Policy Number Subscriber Name Relationship [facility] [id number] Ambrocio Stevenson 19 Child [facility] Community Plan [id number] Tia Stevenson 18 Self Problems Medical Problems [...] A DAY 12/31/13 Active Mometasone Furoate 1 [place] EA NOSTRIL DAILY PRN PRN ORDERS 12/31/13 [...] F (96.8 - 99.1) Temperature (Calculated Celsius) 36.40516 degrees C (36.0 - 37.3) Pulse Rate [...] 2013 2:43pm 32 mcg/mL - Test Performed by:[address] [address] Migration Specialist: Ishaan Beauchamp III, M.D. Oxcarbazepine, S performed at [facility], [address] [place] [address] Fur Puller Nito Wilson MD Phenobarbital Level March 08, 2013 2:43pm 16 ug/mL - Phenobarbital performed at [facility] Reference Lab, [address] [place], [place] [address]Medical Director Nano Wilson MD Platelet Count January [...] 10:00am 3-5 /HPF H - Urine Specific [place] July 24, 2013 10:00am 1.010 L - [...] 24, 2013 11:47am LAB TEST FORM REQUEST [id number] - Respiratory Virus Antigen Screen December 31, [...] 5 DAYS Name: TIA STEVENSON Unit #: [id number] : 1990 Sex: F Loc / Svc: ED DOS: 12/31/13 Signed Report #: [id number] DIAGNOSTIC IMAGING REPORT TYPE OF EXAM: CHEST [...] Encounters Encounter Location Date/Time Departed Emergency Room [facility] 01/01/14 6:02am Departed Emergency Room [facility] 12/31/13 12:36pm Registered Clinic [facility] 11/14/13 12:41pm Departed Emergency Room [facility] 11/03/13 4:55pm Departed Emergency Room [facility] 10/07/13 4:30am Recent Diagnosis
--- OUTSIDE RECORDS SUMMARY | 2016-08-07 12:12 | XMS REPORT | Continuity of Care Document ---
Author Author [facility] Organization [facility] Address Unknown Phone Unavailable Allergies Active [...] Status Pt. Type Provider Facility Loc./Unit Complaint [id number] 05/08/2013 05:28:00 2013 10:40:00 DIS Outpatient Belén VARGHESE, [facility] W.OPRA [id number] 01/10/2013 12:24:00 2012 16:07:00 DIS Outpatient Trish VARGHESE, Eiad B [facility] W.END
--- OUTSIDE RECORDS SUMMARY | 2016-08-07 12:12 | XMS REPORT | Continuity of Care Document ---
Author Author [facility] Organization [facility] Address Unknown Phone Unavailable Care Team Providers Care Manager Mechanical Maintenance Name Role Phone ТАТЬЯНА LOYA MD Primary Care Physician [phone] Insurance Providers Payer Name Policy Number Subscriber Name Relationship [facility] [id number] Ambrocio Stevenson 19 Child [facility] Community Plan [id number] Tia Stevenson 18 Self Advance Directives Directive [...] A DAY 12/31/13 Active Mometasone Furoate 1 [place] EA NOSTRIL DAILY PRN PRN ORDERS 12/31/13 [...] F (96.8 - 99.1) Temperature (Calculated Celsius) 37.24389 degrees C (36.0 - 37.3) Pulse Rate [...] 2013 2:43pm 32 mcg/mL - Test Performed by:[facility] [address] [place] [address] Professional Fee Coder: Ishaan Beauchamp III, M.D. Oxcarbazepine, S performed at [facility], [address] [place] [address] Inspector Metal Fabricating Nito Wilson MD Phenobarbital Level March 08, 2013 2:43pm 16 ug/mL - Phenobarbital performed at [facility] Reference Lab, [address] [place] [id number] Director Nano Wilson MD Platelet Count April [...] 10:00am 3-5 /HPF H - Urine Specific [place] July 24, 2013 10:00am 1.010 L - [...] 24, 2013 11:47am LAB TEST FORM REQUEST [id number] - Glomerular Filtration Rate Calc March 08, 2013 2:43pm 444 - Immature Granulocyte # (Auto) April 07, 2011 8:36am 0.00 T/MM3 N 0.00- 0.03 Immature Granulocyte % (Auto) April 07, 2011 8:36am 0.0 % N 0.0-0.5 Blood Culture Blood December 20, 2010 10:40am NO GROWTH AFTER 5 DAYS Name: TIA STEVENSON Unit #: [id number] : 1990 Sex: F Loc / Svc: JESSIKA DOS: 11/14/13 Signed Report #: [id number] DIAGNOSTIC IMAGING REPORT TYPE OF EXAM: CHEST, [...] Encounters Encounter Location Date/Time Registered Emergency Room [facility] 12/31/13 12:36pm Registered Clinic [facility] 11/14/13 12:41pm Departed Emergency Room [facility] 11/03/13 4:55pm Departed Emergency Room [facility] 10/07/13 4:30am Recent Diagnosis
--- OUTSIDE RECORDS SUMMARY | 2016-08-07 12:13 | XMS REPORT | Continuity of Care Document ---
Author Author [facility] Organization [facility] Address Unknown Phone Unavailable Care Team Providers Care Safe Deposit Clerk Name Role Phone ТАТЬЯНА LOYA MD Primary Care Physician [phone] Insurance Providers Payer Name Policy Number Subscriber Name Relationship [facility] [id number] Ambrocio Stevenson 19 Child [facility] Community Plan [id number] Tia Stevenson 18 Self Problems Medical Problems [...] F (96.8 - 99.1) Temperature (Calculated Celsius) 36.13823 degrees C (36.0 - 37.3) Pulse Rate [...] 2013 2:43pm 32 mcg/mL - Test Performed by:[address] [address] Can Washer: Ishaan Beauchamp III, M.D. Oxcarbazepine, S performed at [facility], [address] [facility], [place] [address] Extracting Machine Operator Nito Wilson MD Phenobarbital Level March 08, 2013 2:43pm 16 ug/mL - Phenobarbital performed at [facility] Reference Lab, [address] [place] [id number] Director Nano Wilson MD Platelet Count April [...] 10:00am 3-5 /HPF H - Urine Specific [place] July 24, 2013 10:00am 1.010 L - [...] 24, 2013 11:47am LAB TEST FORM REQUEST [id number] - Glomerular Filtration Rate Calc March 08, [...]
--- OUTSIDE RECORDS SUMMARY | 2016-08-07 12:13 | XMS REPORT | Continuity of Care Document ---
Author Author [facility] Organization [facility] Address Unknown Phone Unavailable Care Team Providers Care Stopper Grinder Name Role Phone LISA PEREZ DO Primary Care Physician [phone] Insurance Providers Guarantor Tia Stevenson Address [address] [place] [address] Email [email or web address] [facility] Community Plan Policy Number [id number] Subscriber's Name KayleighTia whitten Relationship 18 Self Effective Date 16 Expiration Date 16 Payer [place] Other Policy Number [id number] Subscriber's Name ElvaAmbrocio Relationship 19 Child Group Number [id number] Chief Complaint and Reason for Visit Chief Complaint General Reason for Visit [id number] Problems Active Problems Medical Problem Onset Date Status Aspiration pneumonia due to inhalation of vomitus Unknown Acute Aspiration pneumonia due to inhalation of vomitus Unknown Acute Asthmatic bronchitis Unknown Acute Bronchitis Unknown Acute Bronchitis Unknown Acute Dislodged gastrostomy tube Unknown Acute Dislodged gastrostomy tube Unknown Acute Sinusitis Unknown Acute Upper respiratory infection Unknown Acute Upper respiratory infection Unknown Acute Viral syndrome Unknown Acute Medications Current Home Medications Medication Dose Units Route Directions Days Qty Instructions Start Date Baclofen (Lioresal Intrathecal) 500 Mcg/Ml/Kit Kit 500 Mcg Intrathec Daily 12/05/09 Cholecalciferol (Vitamin D3) (Vitamin D) 50,000 Unit Capsule 50,000 Unit G Tube Every Wednesday And Wednesday07/04/15 Esomeprazole Magnesium (Nexium) 40 Mg Capsule.dr 40 Mg G Tube Twice A Day 12/31/13 Gabapentin (Neurontin) 100 Mg Capsule 100 Mg G Tube Every Morning 12/05/09 Gabapentin (Neurontin) 100 Mg Capsule 200 Mg Oral Bedtime Hydrocodone/Acetaminophen (Lortab 5-325 Mg Tablet) 1 Each Tablet 1 Tab G Tube Every 6 Hours as needed for Pain 12/31/13 Imipramine Hcl 50 Mg Tablet 50 Mg G Tube Bedtime 12/05/09 Lacosamide (Vimpat) 50 Mg Tablet 50 Mg G Tube Every Morning 12/31 Lacosamide (Vimpat) 50 Mg Tablet 75 Mg Oral Bedtime 08/05/16 Levetiracetam (Keppra) 500 Mg Tablet 500 Mg G Tube Am 12/05/09 Levetiracetam 500 Mg Tablet 750 Mg G Tube Bedtime 07/04/15 Lorazepam (Ativan) 2 Mg Tablet 0.5-2 Mg G Tube As Needed for Cluster Seizures 12/05/09 Oxcarbazepine (Trileptal) 300 Mg Tablet 450 Mg G Tube Every Morning 12/05/09 Oxcarbazepine (Trileptal) 300 Mg Tablet 750 Mg G Tube Bedtime Phenobarbital 32.4 Mg Tablet 81 Mg Oral Bedtime 08/05/16 Potassium Chloride (Micro-K) 10 Meq Capsule.sa 10 Meq G Tube Twice A Day 12/05/09 Simethicone (Gas-X) 80 Mg Tab.chew 80 Mg G Tube Three Times A Day 07/04/15 Sodium Chloride (Saline Nasal [place]) Unknown Strength [place] 1 [place] Intranasal As Needed 12/31/13 Zoledronic Acid (Reclast 5 Mg/100 Ml Solution) 5 Mg/100 Ml Ml 5 Mg Oral Yearly 08/05/16 Past Home Medications Medication Directions Ordered Status Gabapentin (Neurontin) 100 Mg Capsule, 100 Mg Oral Twice A Day 03/02/08 Discontinued Levetiracetam (Keppra) 250 Mg Tablet, 250 Mg Oral Twice A Day 03/02/08 Discontinued Metoclopramide Hcl (Reglan) 10 Mg Tablet, 10 Mg Oral Twice A Day 03/01/08 Discontinued Zolpidem Tartrate (Ambien) 5 Mg Tablet, 5 Mg Oral As Needed 03/02/08 Discontinued Social History Social History Problem Response Recorded Date/Time Onset Date Status Hx Substance Use No 08/05/2016 9:25pm Not Applicable Not Applicable Hx Alcohol Use No 08/05/2016 9:25pm Not Applicable Not Applicable Tobacco Usage none 11/03/2013 6:49pm Not Applicable Not Applicable Query Response Start Date Stop Date Smoking Status Never smoker Hospital Discharge Instructions No hospital discharge instructions. Plan of Care Discharge Date 08/05/16 10:45pm Disposition 01 DISCHARGED HOME, SELF-CARE Condition at Discharge Stable Instructions/Education Provided Viral Syndrome (ED) Prescriptions See Medication Section Referrals ТАТЬЯНА LOYA MD Order Date: 1 Week Address: [address] [place] [address] [place] [phone] Note: Additional Instructions/Education There is no evidence of aspiration today. Pt does have evidence of a viral illness. Continue to feed as per usual. Follow up with your doctor. Care Plan and Goals Physician Care Plan Problem: Viral illness Goal: Follow up with primary care provider Instructions: Take medications and follow care plan as discussed/written Functional Status No functional status results. Allergies, Adverse Reactions, Alerts Allergen Type Severity Reaction Status Last Updated Phenytoin Allergy Intermediate RASH Active 08/05/16 Midazolam Allergy Intermediate HYPOTENSION Active 08/05/16 Immunizations Query Response on File Recorded Date/Time Hx Influenza Vaccination Y 12/201301/01/14 7:36am Hx Pneumococcal Vaccination Y >2yrs ago 01/01/14 7:36am Hx Influenza Vaccination Y 12/201301/01/14 7:36am DTaP Vaccine History 15 YEARS AGO 08/05/16 9:25pm Influenza Vaccine Hx 12/201408/05/16 9:25pm Vital Signs Acute Vital Signs Vital Response Date/Time Temperature (Fahrenheit) 98.8 deg F (96.8 - 99.1) 08/05/2016 10:45pm Temperature (Calculated Celsius) 37.04884 degrees C (36.0 - 37.3) 08/05/2016 10:45pm Pulse Rate (adult) 121 bpm (60 - 100) 08/05/2016 10:45pm Respiratory Rate 18 breaths/min (10 - 20) 08/05/2016 10:45pm O2 Sat by Pulse Oximetry 100 % (90 - 100) 08/05/2016 10:45pm Blood Pressure 130/92 mm Hg 08/05/2016 10:45pm Height (Feet) 4 feet 08/05/2016 7:33pm Height (Inches) 6.00 inches 08/05/2016 7:33pm Weight (Kilograms) 42.800 kg 08/05/2016 7:33pm Body Mass Index (BMI) 22.0 08/05/2016 7:33pm Results Laboratory Results Test Name Result Units Flags Reference Collection Date/Time Result Date/ Time Comments White Blood Count 3.5 T/MM3 L 4.5-11.0 08/05/2016 9:04pm 08/05/2016 9: 14pm Red Blood Count 3.80 M/MM3 L 4.00-5.20 08/05/2016 9:04pm 08/05/2016 9: 14pm Hemoglobin 10.3 GM/DL L 12-16 08/05/2016 9:04pm 08/05/2016 9:14pm Hematocrit 31.9 % L 36-46 08/05/2016 9:04pm 08/05/2016 9:14pm Mean Corpuscular Volume 83.9 UM3 80-100 08/05/2016 9:04pm 08/05/2016 9: 14pm Mean Corpuscular Hemoglobin 27.1 UUG 26-34 08/05/2016 9:04pm 2016 9:14pm Mean Corpuscular Hemoglobin Concent 32.3 GM/DL 31-37 08/05/2016 9:04pm 08/05/2016 9:14pm RDW Standard Deviation 55.0 FL H 36.9-50.2 08/05/2016 9:04pm 08/05/2016 9:14pm Platelet Count 191 T/MM3 130-400 08/05/2016 9:04pm 08/05/2016 9:14pm Mean Platelet Volume 10.2 UM3 9.4-12.4 08/05/2016 9:04pm 08/05/2016 9: 14pm Neutrophils (%) (Auto) 67.1 % H 33-66 08/05/2016 9:04pm 08/05/2016 9: 14pm Lymphocytes (%) (Auto) 20.8 % L 23-45 08/05/2016 9:04pm 08/05/2016 9: 14pm Monocytes (%) (Auto) 10.1 % H 0-9.0 08/05/2016 9:04pm 08/05/2016 9:14pm Eosinophils (%) (Auto) 1.7 % 0-4 08/05/2016 9:04pm 08/05/2016 9:14pm Basophils (%) (Auto) 0.0 % 0-2 08/05/2016 9:04pm 08/05/2016 9:14pm Immature Granulocyte % (Auto) 0.3 % 0.0-0.5 08/05/2016 9:04pm 2016 9:14pm Absolute Neutrophils (auto) 2.3 T/MM3 1.8-7.7 08/05/2016 9:04pm 2016 9:14pm Absolute Lymphocytes (auto) 0.7 T/MM3 L 1-4.8 08/05/2016 9:04pm 2016 9:14pm Absolute Monocytes (auto) 0.4 T/MM3 0-0.8 08/05/2016 9:04pm 08/05/2016 9:14pm Absolute Eosinophils (auto) 0.1 T/MM3 0-0.5 08/05/2016 9:04pm 2016 9:14pm Absolute Basophils (auto) 0.0 T/MM3 0-0.2 08/05/2016 9:04pm 08/05/2016 9:14pm Absolute Immature Granulocyte (auto 0.01 T/MM3 0.00-0.03 08/05/2016 9: 04pm 08/05/2016 9:14pm Icterus Index < 2 0-7 08/05/2016 9:04pm 08/05/2016 9:18pm Chemistry Specimen Hemolysis < 15 0-25 08/05/2016 9:04pm 08/05/2016 9 :18pm 0-25: Specimen Exhibited No Hemolysis. Turbidity < 20 0-20 08/05/2016 9:04pm 08/05/2016 9:18pm Sodium Level 140 MEQ/L 134-144 08/05/2016 9:04pm 08/05/2016 9:18pm Potassium Level 4.1 MEQ/L 3.6-5 08/05/2016 9:04pm 08/05/2016 9:18pm Chloride Level 103 MEQ/L 98-107 08/05/2016 9:04pm 08/05/2016 9:18pm Carbon Dioxide Level 27 MEQ/L 22-30 08/05/2016 9:04pm 08/05/2016 9: 18pm Anion Gap 10 MEQ/L 5-08/05/2016 9:04pm 08/05/2016 9:18pm Blood Urea Nitrogen 7.0 MG/DL 10-0508/05/2016 9:04pm 08/05/2016 9:18pm Creatinine 0.2 MG/DL L 0.7-1.2 08/05/2016 9:04pm 08/05/2016 9:18pm BUN/Creatinine Ratio 35 RATIO H 09-1408/05/2016 9:04pm 08/05/2016 9: 18pm Glomerular Filtration Rate Calc 433 08/05/2016 9:04pm 08/05/2016 9: 18pm Glucose Level 104 MG/DL 65-110 08/05/2016 9:04pm 08/05/2016 9:18pm Calculated Osmolality 267 MOSM/KG 261-280 08/05/2016 9:04pm 08/05/2016 9:18pm Calcium Level 8.3 MG/DL L 8.4-10.2 08/05/2016 9:04pm 08/05/2016 9:18pm Plasma Lactate 1.2 MMOL/L 0.6-2.2 08/05/2016 9:04pm 08/05/2016 9:18pm Procedures No known history of procedures. Encounters Encounter Location Arrival/Admit Date Discharge/Depart Date Attending Provider Departed Emergency Room [facility] 08/05/16 6:55pm 08/05/16 10: 45pm YOVANI MICHELLE DO Recent Diagnosis
[2016-08-07 12:27] VITALS: RESP 12; TEMP 97.7; Ht 142.2 cm; Wt 42.9 kg
--- OUTSIDE RECORDS SUMMARY | 2016-08-07 13:34 | XMS REPORT | Continuity of Care Document ---
Author Author [facility] Organization [facility] Address Unknown Phone Unavailable Care Team Providers Care Protection Agent Name Role Phone ТАТЬЯНА LOYA MD Primary Care Physician [phone] Insurance Providers Payer Name Policy Number Subscriber Name Relationship [facility] [id number] Ambrocio Stevenson 19 Child [facility] Community Plan [id number] Tia Stevenson 18 Self Advance Directives Directive [...] A DAY 12/31/13 Active Mometasone Furoate 1 [place] EA NOSTRIL DAILY PRN PRN ORDERS 12/31/13 [...] F (96.8 - 99.1) Temperature (Calculated Celsius) 37.06795 degrees C (36.0 - 37.3) Pulse Rate [...] 2013 2:43pm 32 mcg/mL - Test Performed by:[facility] [address] [place] [address] Investigative Assistant: Ishaan Beauchamp III, M.D. Oxcarbazepine, S performed at [facility], [address] [place] [address] Body Technician/Painter Nito Wilson MD Phenobarbital Level March 08, 2013 2:43pm 16 ug/mL - Phenobarbital performed at [facility], [address] [place] [address] [id number] Director Nano Wilson MD Platelet Count April [...] 10:00am 3-5 /HPF H - Urine Specific [place] July 24, 2013 10:00am 1.010 L - [...] 24, 2013 11:47am LAB TEST FORM REQUEST [id number] - Glomerular Filtration Rate Calc March 08, 2013 2:43pm 444 - Immature Granulocyte # (Auto) April 07, 2011 8:36am 0.00 T/MM3 N 0.00- 0.03 Immature Granulocyte % (Auto) April 07, 2011 8:36am 0.0 % N 0.0-0.5 Blood Culture Blood December 20, 2010 10:40am NO GROWTH AFTER 5 DAYS Name: TAI STEVENSON Unit #: [id number] : 1990 Sex: F Loc / Svc: JESSIKA DOS: 11/14/13 Signed Report #: [id number] DIAGNOSTIC IMAGING REPORT TYPE OF EXAM: CHEST, [...] Encounters Encounter Location Date/Time Registered Emergency Room [facility] 12/31/13 12:36pm Registered Clinic [facility] 11/14/13 12:41pm Departed Emergency Room [facility] 11/03/13 4:55pm Departed Emergency Room [facility] 10/07/13 4:30am Recent Diagnosis
--- OUTSIDE RECORDS SUMMARY | 2016-08-07 13:34 | XMS REPORT | Continuity of Care Document ---
Author Author Organization Address Unknown Phone Unavailable Allergies Active Description [...] Status Pt. Type Provider Facility Loc./Unit Complaint [id number] 05/08/2013 05:28:00 2013 10:40:00 DIS Outpatient Belén VARGHESE, [facility] W.OPRA [id number] 01/10/2013 12:24:00 2012 16:07:00 DIS Outpatient Trish VARGHESE, Eiad B W.END
--- OUTSIDE RECORDS SUMMARY | 2016-08-07 13:34 | XMS REPORT | Continuity of Care Document ---
Author Author [facility] Organization [facility] Address Unknown Phone Unavailable Care Team Providers Care Administrative Program Specialist Name Role Phone ТАТЬЯНА LOYA MD Primary Care Physician [phone] Insurance Providers Payer Name Policy Number Subscriber Name Relationship [facility] [id number] Ambrocio Stevenson 19 Child [facility] Community Plan [id number] Tia Stevenson 18 Self Problems Medical Problems [...] F (96.8 - 99.1) Temperature (Calculated Celsius) 36.18588 degrees C (36.0 - 37.3) Pulse Rate [...] 2:43pm 32 mcg/mL - Test Performed by:[address] [address] Publishing Systems Analyst: Ishaan Beauchamp III, M.D. Oxcarbazepine, S performed at [facility], [address] [place] [address], [place] [address] Business Administration Teacher Nito Wilson MD Phenobarbital Level March 08, 2013 2:43pm 16 ug/mL - Phenobarbital performed at [facility], [address] [place] [id number] Director Nano Wilson MD Platelet Count April [...] 10:00am 3-5 /HPF H - Urine Specific [place] July 24, 2013 10:00am 1.010 L - [...] 24, 2013 11:47am LAB TEST FORM REQUEST [id number] - Glomerular Filtration Rate Calc March 08, 2013 2:43pm 444 - Immature Granulocyte # (Auto) April 07, 2011 8:36am 0.00 T/MM3 N 0.00- 0.03 Immature Granulocyte % (Auto) April 07, 2011 8:36am 0.0 % N 0.0-0.5 Blood Culture Blood December 20, 2010 10:40am NO GROWTH AFTER 5 DAYS Name: TIA STEVENSON Unit #: [id number] : 1990 Sex: F Loc / Svc: ED DOS: 10/07/13 Signed Report #: [id number] DIAGNOSTIC IMAGING REPORT TYPE OF EXAM: CHEST 1 VIEW Dictated By: HAROON DOMÍNGUEZ MD INDICATION: ITS.REASON: possible aspiration CHEST 1 VIEW: The chest is clear. No cardiopulmonary abnormalities. No pneumonia or pleural effusion or atelectasis. . Procedures No known history of procedures. Encounters Encounter Location Date/Time Departed Emergency Room [facility] 11/03/13 4:55pm Departed Emergency Room [facility] 10/07/13 4:30am Recent Diagnosis
--- OUTSIDE RECORDS SUMMARY | 2016-08-07 13:35 | XMS REPORT | Continuity of Care Document ---
Author Author [facility] Organization [facility] Address Unknown Phone Unavailable Care Team Providers Care Water And Sewer Systems Superintendent Name Role Phone ТАТЬЯНА LOYA MD Primary Care Physician [phone] Insurance Providers Payer Name Policy Number Subscriber Name Relationship [facility] [id number] Ambrocio Stevenson 19 Child [facility] Community Plan [id number] Tia Stevenson 18 Self Problems Medical Problems [...] F (96.8 - 99.1) Temperature (Calculated Celsius) 36.80885 degrees C (36.0 - 37.3) Pulse Rate [...] 2013 2:43pm 32 mcg/mL - Test Performed by:[address] [address] Offshore Wind Operations Manager: Ishaan Beauchamp III, M.D. Oxcarbazepine, S performed at [facility], [address] [facility], [place] [address] Millinery Blocker Nito Wilson MD Phenobarbital Level March 08, 2013 2:43pm 16 ug/mL - Phenobarbital performed at [facility], [address] [place] [id number] Director Nano Wilson MD Platelet Count April [...] 10:00am 3-5 /HPF H - Urine Specific [place] July 24, 2013 10:00am 1.010 L - [...] 24, 2013 11:47am LAB TEST FORM REQUEST [id number] - Glomerular Filtration Rate Calc March 08, 2013 2:43pm 444 - Immature Granulocyte # (Auto) April 07, 2011 8:36am 0.00 T/MM3 N 0.00- 0.03 Immature Granulocyte % (Auto) April 07, 2011 8:36am 0.0 % N 0.0-0.5 Blood Culture Blood December 20, 2010 10:40am NO GROWTH AFTER 5 DAYS Procedures No known history of procedures. Encounters Encounter Location Date/Time Departed Emergency Room [facility] 10/07/13 4:30am Registered Clinic [facility] 07/24/13 10:33am Recent Diagnosis
--- OUTSIDE RECORDS SUMMARY | 2016-08-07 13:35 | XMS REPORT | Continuity of Care Document ---
Author Author [facility] Organization [facility] Address Unknown Phone Unavailable Care Team Providers Care Wellness Educator Name Role Phone ТАТЬЯНА LOYA MD Primary Care Physician [phone] Insurance Providers Payer Name Policy Number Subscriber Name Relationship [facility] [id number] Ambrocio Stevenson 19 Child [facility] Community Plan [id number] Tia Stevenson 18 Self Problems Medical Problems [...] A DAY 12/31/13 Active Mometasone Furoate 1 [place] EA NOSTRIL DAILY PRN PRN ORDERS 12/31/13 [...] F (96.8 - 99.1) Temperature (Calculated Celsius) 36.36001 degrees C (36.0 - 37.3) Pulse Rate [...] 2013 2:43pm 32 mcg/mL - Test Performed by:[address] [address] Interior Design Professional: Ishaan Beauchamp III, M.D. Oxcarbazepine, S performed at [facility], [address] [place] [address] Physiognomist Nito Wilson MD Phenobarbital Level March 08, 2013 2:43pm 16 ug/mL - Phenobarbital performed at [facility] Reference [facility], [address] [place], [place] [address]Medical Director Nano Wilson MD Platelet Count January [...] 10:00am 3-5 /HPF H - Urine Specific [place] July 24, 2013 10:00am 1.010 L - [...] 24, 2013 11:47am LAB TEST FORM REQUEST [id number] - Respiratory Virus Antigen Screen December 31, [...] 5 DAYS Name: TIA STEVENSON Unit #: [id number] : 1990 Sex: F Loc / Svc: ED DOS: 12/31/13 Signed Report #: [id number] DIAGNOSTIC IMAGING REPORT TYPE OF EXAM: CHEST [...] Encounters Encounter Location Date/Time Departed Emergency Room [facility] 01/01/14 6:02am Departed Emergency Room [facility] 12/31/13 12:36pm Registered Clinic [facility] 11/14/13 12:41pm Departed Emergency Room [facility] 11/03/13 4:55pm Departed Emergency Room [facility] 10/07/13 4:30am Recent Diagnosis
[2016-08-07 13:44] LABS: BLOOD, URINE NEGATIVE (NEGATIVE); COLOR,URINE YELLOW (YELLOW); LEUKOCYTE ESTERASE ,URINE NEGATIVE (NEGATIVE); NITRITE,URINE NEGATIVE (NEGATIVE); UROBILINOGEN,URINE 0.2 EU/DL (NORMAL)
[2016-08-07 13:45] LABS: BASOPHILS % (AUTO) 0.4 % (0-2); EOSINOPHILS # (AUTO) 0.1 T/MM3 (0-0.5); EOSINOPHILS % (AUTO) 4.3 % (0-4); HCT - HEMATOCRIT 33.5 % (36-46); HGB - HEMOGLOBIN 10.3 GM/DL (12-16); IMMATURE GRANULOCYTE # (AUTO) 0.01 T/MM3 (0.00-0.03); IMMATURE GRANULOCYTE % (AUTO) 0.4 % (0.0-0.5); LYMPHOCYTES # (AUTO) 1.2 T/MM3 (1-4.8); LYMPHOCYTES % (AUTO) 43.5 % (23-45); MEAN CORPUSCULAR HGB CONC(MCHC 30.7 GM/DL (31-37); MEAN CORPUSCULAR VOLUME 87.9 UM3 (80-100); MEAN PLATELET VOLUME 10.3 UM3 (9.4-12.4); MONOCYTES # (AUTO) 0.4 T/MM3 (0-0.8); NEUTROPHILS #(AUTO)-ABSOLUTE 1.1 T/MM3 (1.8-7.7); NEUTROPHILS % (AUTO) 38.4 % (33-66); RED BLOOD COUNT 3.81 M/MM3 (4.00-5.20); WBC - WHITE BLOOD COUNT 2.8 T/MM3 (4.5-11.0)
--- NOTE | 2016-08-07 13:57 | DI ---
Indication: ITS.REASON: cough PROCEDURE: CHEST 1 VIEW: Encounter: Initial Comparison: August 05, 2016 Findings: Stable appearance of the chest. Chronic chest deformity with gracile ribs. Severe scoliotic curvature distorting the anatomy. No obvious new consolidation. No gross pleural effusion or pneumothorax. Heart size and mediastinal contours are stable overall. Pulmonary vascularity appears normal. Prominent gas-filled colon seen underneath the right hemidiaphragm, a chronic finding. Impression: Stable chest without acute cardiopulmonary disease. .
[2016-08-07 14:00] LABS: ANION GAP 9 MEQ/L (5-15); BUN/CREATININE RATIO 25 RATIO (6-26); CALCIUM 8.5 MG/DL (8.4-10.2); CHLORIDE 104 MEQ/L (98-107); CO2 - CARBON DIOXIDE 25 MEQ/L (22-30); CREATININE 0.2 MG/DL (0.7-1.2); GLOMERULAR FILTRATION RATE 433; GLUCOSE 88 MG/DL (65-110); POTASSIUM 4.5 MEQ/L (3.6-5); SODIUM 138 MEQ/L (134-144)
--- NOTE | 2016-08-07 14:15 | ERPDOC ---
Departure Disposition Decision Date: August 07, 2016 Disposition Decision Time: 14:14 (NOJOSE ANTONIO,[employer] CONSULTANT) Disposition: 01 DISCHARGED HOME, SELF-CARE Impression Impression (NOJOSE ANTONIO,[employer] CONSULTANT) Impression: Primary Impression: Urinary retention Severity: Moderate (NOLD,[employer] CONSULTANT) Condition: Stable Seen By: Mid-level only (NOJOSE ANTONIOCOLE N HEALTH AND SAFETY CONSULTANT) Referrals: LISA PEREZ DO (PCP) Patient Instructions: Acute Urinary Retention in Women (ED) Problems/Meds/Labs Reviewed?: Yes Medications reviewed and manag: Yes (NOJOSE ANTONIO,[employer] CONSULTANT) Additional Instructions: Continue to give fluids via G tube. Monitor urinary output. If she should have any return of urinary retention then please return to ER. Otherwise follow up with your primary care provider for reevaluation. Follow up care ordered?: Yes Mental Status: Alert (NOJOSE ANTONIO,[employer] CONSULTANT) HPI - Female General Chief Complaint: Female Urogenital Problems Stated Complaint: NOT URINATING Time Seen by Provider: 13:07 Source: family (Mother) Exam Limitations: no limitations (NOJOSE ANTONIO,[employer] CONSULTANT) Time Seen by Provider: 13:07 (LISA RODAS DO) HPI - Female Initial Comments She is brought in today by her mother. Was evaluated in ER 2 days ago for a possible aspiration. Had labs and xray that were normal. She was diagnosed with viral illness and did go home. She has a g tube and mom give her water via that , usually gets 800ml overnight which mom has been giving. Has not had a fever, vomiting, or diarrhea. Has been a little more subdued overall the last few days. Mom has noted however that she has not voided since yesterday morning. Has had urinary retention in the past a few times. Usually comes in and gets a straight cath and then that seems to get things going again. Bladders scan upon arrival to ER shows approximately 700ml in the bladder. Occurred At: home Onset: Gradual Duration: 12-24 hrs Associated Symptoms: DENIES: fever/chills, loss of bladder control, nausea/ vomiting Hx of Similar Symptoms: Yes Is Pt now?: No (NOLD,[employer] CONSULTANT) Allergies: Coded Allergies: midazolam (Verified Allergy, Intermediate, HYPOTENSION, 08/07/16) phenytoin (Verified Allergy, Intermediate, RASH, 08/07/16) Past History Past Medical History Respiratory: pneumonia GI: GERD, constipation Neurological: other, seizures Musculoskeletal: other (NOLD,[employer] CONSULTANT) Surgical History General: back, other (NOLD,[employer] CONSULTANT) Vaccines Hx Influenza Vaccination: Yes (12/2013) Hx Pneumococcal Vaccination: Yes (>2yrs ago) (NOLD,[employer] CONSULTANT) Social History Substance Use Type: does not use Alcohol Intake: none (NOLD,[employer] CONSULTANT) Review of Systems Constitutional Constitutional: DENIES: chills, dizziness, fatigue, fever, weakness (NOLD, [employer] CONSULTANT) Eyes Vision: DENIES: blurring, double vision (NOLD,[employer] CONSULTANT) ENMT Ears: DENIES: drainage, pain Sinuses: DENIES: congestion, rhinorrhea Mouth/Throat: DENIES: scratchy throat, sore throat (NOLD,[employer] [employer] CONSULTANT) Cardiovascular Cardiac: DENIES: chest pain, orthopnea Rhythm/Rate: DENIES: irregular beat, palpitations (NOLD,[employer] CONSULTANT) Pulmonary Respiratory: DENIES: cough, dyspnea, sputum, tachypnea (NOLD,[employer] CONSULTANT) GI Upper Abdomen: DENIES: nausea, pain, vomiting Lower Abdomen: DENIES: constipation, diarrhea, pain (NOLD,[employer] CONSULTANT) Neurological General: DENIES: headache, numbness, tingling, weakness (NOLD,[employer] CONSULTANT) Physical Exam General General Nourishment: well nourished, well developed, appears stated age, no acute distress, adult, thin General Body Habitus: well groomed (NOLD,[employer] CONSULTANT) Vitals and Pain First Documented Vital Signs Date Time Temp Pulse Resp B/P Pulse Ox O2 Delivery O2 Flow Rate FiO2 08/07/16 12:27 97.7 98 12 124/91 100 Room Air (LISA RODAS DO) Vitals and Pain Weight: Kilograms: 42.900 Height (feet): 4 Height (inches): 8.00 Triage Pain Scale: (NOJOSE ANTONIO,[employer] CONSULTANT) RN VS reviewed by Provider: Yes (NOJOSE ANTONIO,[employer] CONSULTANT) Normal Exams: Neck: Full range of motion, without adenopathy, JVD, bruits or thyromegaly Chest/Resp: Clear all bee, with good airflow, and symmetry bilaterally CV: Regular rate and rhythm, without murmur or gallop, Pulses 2+ all extremities, capillary refill, <2 seconds all ext., no pedal edema noted Abdomen: Bowel sounds positive, soft, non-tender, non-distended, no hepatosplenomegaly, masses or bruits noted Lymphatic: No lymphadenopathy, or lymphedema noted Integumentary: No rashes, hives, or bruising noted Neurologic: Patient is alert Psychiatric: Patient exhibits, appropriate attention, emotion and affect (COLE HORTON APRN) ENMT (brief) ENMT Brief: NOT FOUND: mucosa moist (dry but mom states that she usually has some dryness as she does not take PO) (COLE HORTON APRN) Differential Diagnoses Considering: UTI, Other (dehydration, pneumonia, viral illness, urinary retention) (COLE HORTON APRN) Progress Results/Orders Orders Procedure Category Date Status Time [place] (Ed) EDM 08/07/16 Transmitted 13:18 Cbc W/Auto LAB 08/07/16 Complete Diff-Reflex Manual Bmp - Basic Metabolic LAB 08/07/16 Complete Panel Ua, Dip Wreflex LAB 08/07/16 Complete Microsc & Software Test Analyst 13:18 Chest 1 View RAD 08/07/16 Resulted (LISA RODAS DO) Lab Results Laboratory Tests Test 08/07/16 13:30 08/07/16 13:35 Urine Collection Type Cleancatch-midstream Urine Color Yellow Urine Turbidity Clear Urine pH 7.5 Urine Specific [place] 1.010 Urine Protein Negative Urine Glucose (UA) Trace Urine Ketones Negative Urine Blood Negative Urine Nitrite Negative Urine Bilirubin Negative Urine Urobilinogen 0.2EU/DL Urine Leukocyte Esterase Negative Urinalysis Comment Microscopic not ind. White Blood Count 2.8T/MM3 Red Blood Count 3.81M/MM3 Hemoglobin 10.3GM/DL Hematocrit 33.5% Mean Corpuscular Volume 87.9UM3 Mean Corpuscular Hemoglobin 27.0UUG Mean Corpuscular Hemoglobin Concent 30.7GM/DL RDW Standard Deviation 59.8FL Platelet Count 163T/MM3 Mean Platelet Volume 10.3UM3 Immature Granulocyte % (Auto) 0.4% Neutrophils (%) (Auto) 38.4% Lymphocytes (%) (Auto) 43.5% Monocytes (%) (Auto) 13.0% Eosinophils (%) (Auto) 4.3% Basophils (%) (Auto) 0.4% Absolute Immature Granulocyte (auto 0.01T/MM3 Absolute Neutrophils (auto) 1.1T/MM3 Absolute Lymphocytes (auto) 1.2T/MM3 Absolute Monocytes (auto) 0.4T/MM3 Absolute Eosinophils (auto) 0.1T/MM3 Absolute Basophils (auto) 0.0T/MM3 Turbidity < 20 Sodium Level 138MEQ/L Potassium Level 4.5MEQ/L Chloride Level 104MEQ/L Carbon Dioxide Level 25MEQ/L Anion Gap 9MEQ/L Blood Urea Nitrogen 5.0MG/DL Creatinine 0.2MG/DL Glomerular Filtration Rate Calc 433 BUN/Creatinine Ratio 25RATIO Glucose Level 88MG/DL Calculated Osmolality 262MOSM/KG Calcium Level 8.5MG/DL Icterus Index < 2 Chemistry Specimen Hemolysis < 15 (LISA RODAS DO) Progress Progress WBC today is 2.8 without elevation of neutrophils at all. BMP is normal. UA is clear. Chest xray is clear. Will go ahead and let her go home today. Did recheck labs as she is non verbal and mom feels that she has not totally recovered from her previous visit. Will have mom continue to give fluids via the g tube today. Monitor for urinary output. She has had this problem in the past that did resolve on its own after cath in ER. If no further urinary output then return to Er. (COLE HORTON APRN) Xray Xray : Reason for Exam: fatigue Xray: CXR Portable Interpretation: Normal (COLE HORTON APRN) COLE HORTON APRN August 07, 2016 14:15 LISA RODAS DO August 08, 2016 06:33
[2016-08-07 14:34] VITALS: BP 130/89; PULSE 98; O2SAT 100
== END 2016-08-07 14:34 | disposition home or self-care (01) ==
LOC: ED 12:07
DX: R33.9 Retention of urine, unspecified (principal); R53.83 Other fatigue
CPT/HCPCS: 36415; 51702; 80048; 81003; 85025